=== PATIENT | female | born 1965 | race Hispanic/Latino ===

== ENCOUNTER 2022-12-17 18:38 | Emergency (ER) | payer SELFPAY ==
--- OUTSIDE RECORDS SUMMARY | 2022-12-17 18:43 | XMS REPORT | Continuity of Care Document ---
:[address] [facility] t Address [address] [place] [address] Care Team Providers Name Role Phone PCP, PATIENT DOES NOT HAVE A Primary Care Physician Unavaila ble [email or web address] Attending Clinician Unavailable LOGAN BLACK Attending Clinician Unavailable Logan Black MD Attending Clinician DESEAN LEMA Attending Clinician Unavailable Noris Farris Attending Clinician Unknown, Attending Attending Clinician Unavailable Desean Whitten Attending Clinician Yas Farr Attending Clinician Matteo Ribeiro Attending Clinician [email or web address] Admitting Clinician Unavailable Yas Farr Admitting Clinician Matteo Ribeiro Admitting Clinician Payers Payer Name Policy Type Policy Number Effective Date Expiration Date Sixto vaughn MEDICAID PITER PENDING 2022 2022 PENDING 00:00:00 00:00:00 Problems Condition Condition Condition Status Onset Resolution Last Treating Co mments Source Name Details Category Date Date Treatment Clinician Date Diabetes Diabetes Problem Active [facility] mellitus Mellitus 5-05 Medica l 00:00: 00 Type II Type II Problem Active [facility] diabetes Diabetes 5-05 Medica l mellitus Mellitus 00:00: uncontroll Uncontroll 00 ed ed Hyperlipid Hyperlipid Problem Active P rivia emia emia 5-05 Medical 00:00: 00 Visual Visual Problem Active [facility] disturbanc Disturbanc 5-05 Me dical e e 00:00: 00 Essential Essential Problem Active Shelly via hypertensi Hypertensi 5-05 Me dical on on 00:00: 00 ACUTE ACUTE Diagnosis Active 2016-062017-09-03 Mem oria OSTEOMYELI OSTEOMYELI 08-07 16:39:00 l TIS TIS 00:00: [place] [facility] INFECTION INFECTION Diagnosis Active 2016-062017-06-06 Memoria ON LEFT ON LEFT 08-07 11:08:00 l FOOT FOOT 00:00: [place] Active 06/06/2017 [facility] Lico Toe Toe Disease Active 2016-06 Univers osteomyeli osteomyeli - it y of tis, left tis, left [place] [facility] Toe Toe Disease Active 2016-06 Univers infection infection 1-01 ity of 00:00: [place] [facility] Abscess of Abscess of Disease Active 2016-06 U nivers great toe great toe 0-31 ity of of left of left 00:00: [place] foot foot 00 Medical Branch Diabetic Diabetic Disease Active 2016-06 Unive rs foot ulcer foot ulcer 0-28 it y of 00:00: [place] [facility] Cellulitis Cellulitis Disease Active 2016-06 U nivers of foot, of foot, 0-28 ity of left left 00:00: [place] 00 [facility] Branch Essential Essential Disease Active 2016-06 Uni vers hypertensi hypertensi 0-28 it y of on on 00:00: [place] [facility] Rash and Rash and Disease Active 2016-06 Unive rs other other 0-28 ity of nonspecifi nonspecifi [place] skin c skin 00 Medical eruption eruption Branch Type 2 Type 2 Disease Active 2016-06 Univers diabetes diabetes 0-28 ity of mellitus mellitus 00:00: [place] [facility] DKA DKA Disease Active 2015-06 Univers (diabetic (diabetic 1-23 ity of ketoacidos ketoacidos [place]: [place] es[place] 00 [facility] Hypertensi Problem Active 2017-06-23 Bravo potter ve Hypertensi 02:11:07 l disorder, ve [place] systemic disorder, arterial systemic (disorder) arterial (disorder) Active Problem 06/23/2017 Bravo Pacheco [facility] Osteomyeli Osteomyel Problem Active 2017-06-23 Memoria tis itis 02:11:07 l (disorder) (disorder) He rmann Active Problem 06/23/2017 Bravo Pacheco [facility] OSTEOMYELI OSTEOMYEL Diagnosis Active 2017-09-03 Memoria TIS, ITIS, 16:39:00 l UNSPECIFIE UNSPECIFIE He rmann D D Active [facility] OTHER OTHER Diagnosis Active 2017-06-10 Mem oria ACUTE ACUTE 13:21:00 l OSTEOMYELI OSTEOMYELI He rmann TIS, TIS, UNSPECIFIE UNSPECIFIE D S D S Active [facility] PURE PURE Diagnosis Active 2017-06-18 Mem oria HYPERGLYCE HYPERGLYCE 08:20:00 l RIDEMIA RIDEMIA [place] Active [facility] OTHER OTHER Diagnosis Active 2017-06-18 Mem oria SPECIFIED SPECIFIED 08:20:00 l SOFT SOFT [place] TISSUE TISSUE DISORDERS DISORDERS Active [facility] Other Other Problem 2017-06-23 Memor ia acute acute 02:11:07 l osteomyeli osteomyeli He rmann tis, tis, unspecifie unspecifie d site d site 06/23/2017 [facility] Allergies, Adverse Reactions, Alerts Allergy Allergy Status Severity Reaction(s) Onset Inactive Treating Comm ents Source Name Type Date Date Clinician NO KNOWN Drug Active Univers ALLERGIE Class ity of S [facility] Social History Social Habit Start Date Stop Date Quantity Comments Source Exposure to 2022-10-04 2022-10-14 Not sure [facility] SARS-CoV-2 00:00:00 19:49:00 [facility] (event) Branch Alcohol intake 2022-10-14 2022-10-14 Current University of 00:00:00 00:00:00 non-drinker of [facility] alcohol (finding) Branch Tobacco use and 2017-09-09 2017-09-09 Smokeless tobacco Un iversity of exposure 00:00:00 00:00:00 non-user [place] [facility][birth year] At [birth year] [facility] Branch Smoking Status Start Date Stop Date Source Social History [facility] Medications Ordered Filled Start Stop Current Ordering Indication Dosage Frequency Signature Comments Components Source Medication Medication Date Date Medication? Clinician (SIG) Name Name INSULIN NPH Yes 50U inject 50 U nivers HUM/REG 5-01 Units ity of INSULIN HM 18:29: [place] (NOVOLIN 38 skin 2 Medical 70/30 SC) (two) Branch times daily. SIMVASTATIN 0 Yes 50mg Take 50 mg Univers ORAL 5-01 by mouth ity of 18:29: daily. [place] [address] Medical Branch clopidogrel 2022-0 Yes 75mg Take 1 Univ ers 75 mg 5-01 tablet by ity of tablet 18:29: mouth [place] 38 daily. Medical Branch SERTraline Yes 25mg Take 1 Unive rs 25 mg 5-01 tablet by ity of tablet 18:29: mouth [place] [address] daily. Medical Branch amitriptyli 0 Yes 10mg Take 1 Univ ers ne 10 mg 5-01 tablet by ity of tablet 18:29: mouth at [place] [address] bedtime. Medical Branch diazePAM 2 0 Yes 3mg Take 1.5 Uni vers mg tablet 5-01 tablets by ity of 18:29: mouth at [place] [address] bedtime. Medical Branch simvastatin 0 Yes 20mg Take 1 Univ ers 20 mg 5-01 tablet by ity of tablet 18:29: mouth at [place] [address] bedtime. Medical Branch lisinopril 0 Yes 5mg Take 1 Unive rs 5 mg tablet 5-01 tablet by ity of 18:29: mouth [place] 38 daily. Medical Branch INSULIN NPH Yes 50U inject 50 U nivers HUM/REG 5-01 Units ity of INSULIN HM 18:29: [place] (NOVOLIN 38 skin 2 Medical 70/30 [place]) (two) Branch times daily. SIMVASTATIN 2022-0 Yes 50mg Take 50 mg Univers ORAL 5-01 by mouth ity of 18:29: daily. [place] [address] Medical Branch clopidogrel 2022-0 Yes 75mg Take 1 Univ ers 75 mg 5-01 tablet by ity of tablet 18:29: mouth [place] 38 daily. Medical Branch SERTraline 2023-0 Yes 25mg Take 1 Unive rs 25 mg 5-01 tablet by ity of tablet 18:29: mouth [place] 38 daily. Medical Branch amitriptyli Yes 10mg Take 1 Univ ers ne 10 mg 5-01 tablet by ity of tablet 18:29: mouth at [place] [address] bedtime. Medical Branch diazePAM 2 Yes 3mg Take 1.5 Uni vers mg tablet 5-01 tablets by ity of 18:29: mouth at [place] [address] bedtime. Medical Branch simvastatin Yes 20mg Take 1 Univ ers 20 mg 5-01 tablet by ity of tablet 18:29: mouth at [place] [address] bedtime. Medical Branch lisinopril Yes 5mg Take 1 Unive rs 5 mg tablet 5-01 tablet by ity of 18:29: mouth [place] 38 daily. Medical Branch simvastatin Yes 20 mg = 1 M emoria 20 mg oral 1-05 tab, PO, l tablet 21:15: Bedtime, # Annabel nn 00 30 tab, 5 Refill(s), Pharmacy: [facility] sertraline Yes 25 mg = 1 Me moria 25 mg oral 1-05 tab, PO, l tablet 21:15: Daily, # [place] 00 30 tab, 3 Refill(s), Pharmacy: [facility] melatonin 3 Yes 6 mg, PO, M emoria mg oral 1-05 Bedtime, l tablet 21:15: PRN as [place] 00 needed for insomnia, # 120 tab, 0 Refill(s), Pharmacy: [facility] tramadol Yes 50 mg = 1 Eliel lis hydrochlori 1-05 tab, PO, l de 50 MG 21:15: Q6H, PRN Annabel nn Oral Tablet 00 Pain, X 30 day, # 120 tab, 0 Refill(s) Metronidazo Yes 500 mg = 1 Memoria le 500 MG 1-05 tab, PO, l Oral Tablet 21:15: Q8H, X 7 He rmann [Flagyl] 00 day, # 21 tab, 0 Refill(s), Pharmacy: [facility] sitaGLIPtin Yes 50 mg = 1 M emoria 50 mg oral 1-05 tab, PO, l tablet 21:15: Daily, # [place] 00 30 tab, 5 Refill(s), Pharmacy: [facility] Levofloxaci Yes 750 mg = 1 Memoria n 750 MG 1-05 tab, PO, l Oral Tablet 21:15: Q24H, X 7 H ermann [Levaquin] 00 day, # 7 tab, 0 Refill(s), Pharmacy: [facility] Metformin Yes 500 mg = 1 Me moria hydrochlori 1-05 tab, PO, l de 500 MG 21:15: BID-Meals, He rmann Oral Tablet 00 # 60 tab, 3 Refill(s), Pharmacy: [facility] clopidogrel Yes 75 mg = 1 M emoria 75 mg oral 1-05 tab, PO, l tablet 21:15: Daily, # [place] 00 30 tab, 3 Refill(s), Pharmacy: [facility] K-Dur 20 No Notes: Memoria 06-19 (Same as: l 15:29: K-Dur 20) [place] 00 "Do Not Crush" With food and full glass of water Sodium No 1,000 mL, Memori a Chloride 06-19 1,000 l 0.9% 15:28: ml/hr, [place] (Bolus) IV 00 Infuse Over: 1 hr, Route: IV, 1,000, Drug form: INJ, ONCE, Priority: STAT, Dosing Weight 73.636 kg, Start date: 06/19/17 9:28:00 CAKE STRIPPER, Stop date: 06/19/17 9:28:00 CAKE STRIPPER Insulin No Notes: Memoria Lispro 06-19 Roll in l 05:08: palms of [place] 00 hands gently; Do not shake `vigorousl y. (Same as: Humalog ) "Single Patient Use Only " WASTE: F/P - Black; E - Municipal Trash Bin Stable for 28 days at room temperatur e. Expires in days from ____Date Zoloft No Notes: Memoria 06-19 (Same as: l 03:00: Zoloft) [place] 00 Albuterol No 2.49 mg, Eliel lis 0.83 MG/ML 1-03 Route: l Inhalant 22:17: NEB, [place] Solution 00 Q20Min, Dosing Weight 73.636, kg, PRN Wheezing, Priority: STAT, Start date: 06/18/17 16:17:00 CAKE STRIPPER, Duration: 30 day, Stop date: 07/18/17 16:16:00 CAKE STRIPPER Naloxone 2018-0 No 0.4 mg, Memori a 06-18 Route: l 22:17: IVP, [place] 00 Q2MIN, Dosing Weight 73.636, kg, PRN Narcotic Reversal, Start date: 06/18/17 16:17:00 CAKE STRIPPER, Duration: 8 doses or times, Stop date: Limited # of times Meperidine 2018-0 No 12.5 mg, Mem oria 06-18 Route: l 22:17: IVP, [place] 00 Q30Min, Dosing Weight 73.636, kg, PRN Other -See Comment, For shivering, Start date: 06/18/17 16:17:00 CAKE STRIPPER, Duration: 2 doses or times, Stop date: Limited # of times Diphenhydra 2018-0 No 12.5 mg, Me moria mine 06-18 Route: l 22:17: IVP, Drug form: INJ, Q6H, Dosing Weight 73.636, kg, PRN Itching, Start date: 06/18/17 16:17:00 CAKE STRIPPER, Duration: 30 day, Stop date: 07/18/17 16:16:00 CAKE STRIPPER Ondansetron 2018-0 No 4 mg, Memor ia 06-18 Route: l 22:17: IVP, ONCE, Dosing Weight 73.636, kg, PRN Nausea & Vomiting, Start date: 06/18/17 16:17:00 CAKE STRIPPER Promethazin 2018-0 No 6.25 mg, Me moria e 06-18 Route: l 22:17: IVPB, [place] 00 ONCE, Dosing Weight 73.636, kg, PRN Nausea & Vomiting, Start date: 06/18/17 16:17:00 CAKE STRIPPER Flumazenil 2018-0 No 0.2 mg, Eliel lis 06-18 Route: l 22:17: IVP, PRN, [place] 00 Dosing Weight 73.636, kg, PRN Benzodiaze pine Reversal, Initial dose, Start date: 06/18/17 16:17:00 CAKE STRIPPER, Duration: 30 day, Stop date: 07/18/17 16:16:00 CAKE STRIPPER Hydromorpho 2018-0 No 0.5 mg, Mem oria ne 06-18 Route: l 22:17: IVP, [place] 00 Q5Min, Dosing Weight 73.636, kg, PRN Pain Score 7-10, Start date: 06/18/17 16:17:00 CAKE STRIPPER, Duration: 4 doses or times, Stop date: Limited # of times esmolol 2018-0 No 10 mg, Memoria 06-18 Route: l 22:17: IVP, [place] 00 Q5Min, Dosing Weight 73.636, kg, PRN Other -See Comment, Start date: 06/18/17 16:17:00 CAKE STRIPPER, Duration: 5 doses or times, Stop date: Limited # of times Labetalol 2018-0 No 10 mg, Memori a 06-18 Route: l 22:17: IVP, [place] 00 Q5Min, Dosing Weight 73.636, kg, PRN Elevated BP, Start date: 06/18/17 16:17:00 CAKE STRIPPER, Duration: 5 doses or times, Stop date: Limited # of times Acetaminoph 2018-0 No 1,000 mg, M emoria en 06-18 Route: PO, l 22:17: Drug form: [place] 00 TAB, ONCE, Dosing Weight 73.636, kg, PRN Pain Score 1-3, Start date: 06/18/17 16:17:00 CAKE STRIPPER Oxycodone 2018-0 No 5 mg, Memoria 06-18 Route: PO, l 22:17: Drug form: [place] 00 TAB, Q4H, Dosing Weight 73.636, kg, PRN Pain Score 4-6, Start date: 06/18/17 16:17:00 CAKE STRIPPER, Duration: 30 day, Stop date: 07/18/17 16:16:00 CAKE STRIPPER Hydralazine 2018-0 No 10 mg, Eliel lis 06-18 Route: l 22:17: IVP, [place] 00 Q20Min, Dosing Weight 73.636, kg, PRN Elevated BP, Start date: 06/18/17 16:17:00 CAKE STRIPPER, Duration: 2 doses or times, Stop date: Limited # of times Calcium No 1,000 mL, Memor ia Chloride 06-18 Rate: 125 l 0.0014 22:17: ml/hr, MEQ/ML / 00 Infuse Potassium over: 8 Chloride hr, Route: 0.004 IV, Dosing MEQ/ML / Weight Sodium 73.636 kg, Chloride Total 0.103 Volume: MEQ/ML / 1,000, Sodium Start Lactate date: 0.028 06/18/17 MEQ/ML 16:17:00 Injectable CAKE STRIPPER, Solution Duration: 30 day, Stop date: 07/18/17 16:16:00 CAKE STRIPPER, 1.86, m2 ondansetron No Route: IV, Memoria (ANES) 06-18 Drug form: l 21:24: INJ, ONCE, Stop date: 06/18/17 15:24:00 CAKE STRIPPER propofol No Route: IV, Mem oria (ANES) 06-18 Drug form: l 20:53: INJ, ONCE, Stop date: 06/18/17 14:53:00 CAKE STRIPPER lidocaine No Route: IV, Me moria (ANES) 06-18 Drug form: l 20:53: INJ, ONCE, Stop date: 06/18/17 14:53:00 CAKE STRIPPER fentaNYL No Route: IV, Mem oria (ANES) 06-18 Drug form: l 20:48: INJ, ONCE, Stop date: 06/18/17 14:48:00 CAKE STRIPPER Lactated No Route: IV, Mem oria Ringers 06-18 Total l Injection 20:03: Volume: Annabel nn IV (ANES) 00 1,000, 1000 mL Start date: 06/18/17 14:03:00 CAKE STRIPPER, Stop date: 06/18/17 15:03:00 CAKE STRIPPER Albuterol No 3 mL, Memoria 0.833 MG/ML 06-18 Route: l / 19:48: NEB, [place] Ipratropium 00 Dosing Shepherd Weight 0.167 MG/ML 73.636, Inhalant kg, ONCE, Solution STAT, Start date: 06/18/17 13:48:00 CAKE STRIPPER, Stop date: 06/18/17 13:48:00 CAKE STRIPPER Calcium No 1,000 mL, Memor ia Chloride 06-18 Rate: 25 l 0.0014 19:48: ml/hr, [place] MEQ/ML / 00 Infuse Potassium over: 40 Chloride hr, Route: 0.004 IV, Dosing MEQ/ML / Weight Sodium 73.636 kg, Chloride Total 0.103 Volume: MEQ/ML / 1,000, Sodium Start Lactate date: 0.028 06/18/17 MEQ/ML 13:48:00 Injectable CAKE STRIPPER, Solution Duration: 30 day, Stop date: 07/18/17 13:47:00 CAKE STRIPPER, 1.86, m2 Insulin No Notes: Memoria regular 06-18 (Same as: l 18:24: Humulin R [place] 00 and NovoLIN R) WASTE: F/P - Black; E - Municipal Trash Bin (Do not shake) Lisinopril No Notes: Memor ia 06-18 (Same as: l 15:00: Prinivil, Zestril) Zoloft No Notes: Memoria 06-18 (Same as: l 03:47: Zoloft) [place] 00 Insulin No Notes: Memoria Lispro 06-17 Roll in l 19:20: palms of hands gently; Do not shake `vigorousl y. (Same as: Humalog ) "Single Patient Use Only " WASTE: F/P - Black; E - Municipal Trash Bin Stable for 28 days at room temperatur e. Expires in days from ____Date Dextrose No 12.5 gm, Memor ia 50% Syringe 06-17 25 mL, l 19:20: Route: IVP, Drug Form: INJ, Dosing Weight 73.636, kg, PRN, PRN Blood Glucose Results, Start date: 06/17/17 13:20:00 CAKE STRIPPER, Duration: 30 day, Stop date: 07/17/17 13:19:00 CAKE STRIPPER Glucagon No 1 mg, Memoria 06-17 Route: IM, l 19:20: Drug form: PDR/INJ, PRN, Dosing Weight 73.636, kg, PRN Blood Glucose Results, Start date: 06/17/17 13:20:00 CAKE STRIPPER, Duration: 30 day, Stop date: 07/17/17 13:19:00 CAKE STRIPPER Miralax No Notes: Memoria 1-02 Dissolve l 19:18: in 8 oz of [place] 00 water or juice. (Same as: Miralax) Hydralazine No Notes: Eliel lis 1- (Same as: l 00:18: Apresoline ) Push over 5 minutes Zosyn 2016-06 No Notes: Memoria 2- (Same as: l 20:00: Zosyn) Dosing based on Piperacill in component MEDICATION WASTE Product Size: 3375 mg Product Wasted: ___ mg Plavix 2016-06 No Notes: Memoria 2- (Same As: l 15:00: Plavix) [place] cadexomer 2016-06 No Notes: Memori a iodine - Non-Formul l 0.009 MG/MG 15:00: bernarda Drug. H ermann Topical Gel 00 For [Iodosorb] external use only. (Same As: Iodosorb) Melatonin 3 2016-06 No Notes: Eliel lis MG Extended - (Same as: l Release 03:35: Melatonin) Herm ghazal Tablet 00 heparin 2016-06 No Route: IV, Eliel lis (ANES) - Drug form: l 18:37: INJ, ONCE, [place] 00 Stop date: 06/11/17 12:37:00 CAKE STRIPPER normal 2016-06 No 1,000 mL, Memori a saline 0.9% 08-12 Rate: 100 l IV 1,000 mL 18:35: ml/hr, Herm ghazal Infuse over: 10 hr, Route: IV, Dosing Weight 73.636 kg, Total Volume: 1,000, Start date: 06/11/17 12:35:00 CAKE STRIPPER, Duration: 30 day, Stop date: 07/11/17 12:34:00 CAKE STRIPPER, 1.86, m2 midazolam 2016-06 No Route: IV, Me moria (ANES) - Drug form: l 18:27: SOLN, [place] 00 ONCE, Stop date: 06/11/17 12:27:00 CAKE STRIPPER midazolam 2016-06 No Route: IV, Me moria (ANES) 2- Drug form: l 18:12: SOLN, [place] 00 ONCE, Stop date: 06/11/17 12:12:00 CAKE STRIPPER ondansetron 2016-06 No Route: IV, Memoria (ANES) 08-12 Drug form: l 18:12: INJ, ONCE, [place] Stop date: 06/11/17 12:12:00 CAKE STRIPPER fentaNYL 2016-06 No Route: IV, Mem oria (ANES) 08-12 Drug form: l 18:12: INJ, ONCE, [place] Stop date: 06/11/17 12:12:00 CAKE STRIPPER Lactated 2016-06 No Route: IV, Mem oria Ringers 08-12 Total l Injection 17:24: Volume: Annabel nn IV (ANES) 00 1,000, 1000 mL Start date: 06/11/17 11:24:00 CAKE STRIPPER, Stop date: 06/11/17 12:24:00 CAKE STRIPPER Albuterol 2016-06 No 3 mL, Memoria 0.833 MG/ML 08-12 Route: l / 16:07: NEB, [place] Ipratropium 00 Dosing Shepherd Weight 0.167 MG/ML 73.636, Inhalant kg, ONCE, Solution STAT, Start date: 06/11/17 10:07:00 CAKE STRIPPER, Stop date: 06/11/17 10:07:00 CAKE STRIPPER Calcium 2016-06 No 1,000 mL, Memor ia Chloride 08-12 Rate: 25 l 0.0014 16:07: ml/hr, Lico MEQ/ML / 00 Infuse Potassium over: 40 Chloride hr, Route: 0.004 IV, Dosing MEQ/ML / Weight Sodium 73.636 kg, Chloride Total 0.103 Volume: MEQ/ML / 1,000, Sodium Start Lactate date: 0.028 06/11/17 MEQ/ML 10:07:00 Injectable CAKE STRIPPER, Solution Duration: 30 day, Stop date: 07/11/17 10:06:00 CAKE STRIPPER, 1.86, m2 Docusate 2016-06 No Notes: Memoria 2- (Same as: l 23:00: Colace) [place] (Do Not Crush) heparin 2016-06 No Notes: Memoria 2- porcine l 22:00: heparin [place] 00 Zosyn 2016-06 No Notes: Memoria 2-26 (Same as: l 21:00: Zosyn) Dosing based on Piperacill in component MEDICATION WASTE Product Size: 3375 mg Product Wasted: ___ mg aspirin 81 2016-06 No Notes: Do Me moria mg tablet, 08-11 not crush l enteric 20:59: or chew. Dagoberto n coated 00 (Same As: Ecotrin) Ondansetron 2016-06 No Notes: Eliel lis 08-11 (Same as: l 20:40: Zofran) MEDICATION WASTE Product Size: 4 mg Product Wasted: ___ mg Morphine 2016-06 No Notes: Memoria 08-11 (Same l 20:40: as:MORPhin e Sulfate) Insulin 2016-06 No Notes: Memoria Lispro 08-11 Roll in l 20:36: palms of hands gently; Do not shake `vigorousl y. (Same as: Humalog ) "Single Patient Use Only " WASTE: F/P - Black; E - Municipal Trash Bin Stable for 28 days at room temperatur e. Expires in days from ____Date Glucagon 2016-06 No 1 mg, Memoria 08-11 Route: IM, l 20:36: Drug form: PDR/INJ, PRN, Dosing Weight 73.636, kg, PRN Blood Glucose Results, Start date: 06/10/17 14:36:00 CAKE STRIPPER, Duration: 30 day, Stop date: 07/10/17 14:35:00 CAKE STRIPPER Dextrose 2016-06 No 12.5 gm, Memor ia 50% Syringe 08-11 25 mL, l 20:36: Route: IVP, Drug Form: INJ, Dosing Weight 73.636, kg, PRN, PRN Blood Glucose Results, Start date: 06/10/17 14:36:00 CAKE STRIPPER, Duration: 30 day, Stop date: 07/10/17 14:35:00 CAKE STRIPPER Lisinopril 2016-06 No Notes: Memor ia - (Same as: l 15:00: Prinivil, Zestril) Diazepam 2016-06 No Notes: Memoria 2-24 (Same as: l 15:00: Valium) [place] 00 aspirin 81 2016-06 No Notes: Do Me moria mg tablet, 2-24 not crush l enteric 15:00: or chew. Dagoberto n coated 00 (Same As: Ecotrin) Zosyn 2016-06 No Notes: Memoria 2-23 (Same as: l 21:00: Zosyn) [place] 00 Dosing based on Piperacill in component MEDICATION WASTE Product Size: 3375 mg Product Wasted: ___ mg Unasyn 2016-06 No 3 gm, Memoria 2-23 Route: l 20:46: IVPB, Drug form: PDR/INJ, ABXQ6H, Dosing Weight 73.8, kg, Priority: NOW, Start date: 06/07/17 14:46:00 CAKE STRIPPER, Duration: 3 day, Stop date: 06/10/17 8:46:00 CAKE STRIPPER Miralax 2016-06 No Notes: Memoria 2-23 Dissolve l 15:00: in 8 oz of water or juice. (Same as: Miralax) diazepam 10 2016-06 Yes 10 mg = 1 M emoria mg oral 2-23 tab, PO, l tablet 11:31: Daily, 0 [place] 00 Refill(s) aspirin 81 2016-06 Yes 81 mg = 1 Me moria mg tablet, 2-23 tab, PO, l enteric 11:31: Daily, # Dagoberto n coated 00 90 tab, 3 Refill(s) Aspirin 2016-06 Yes 0 Memoria 2-23 Refill(s) l 11:31: [place] 00 lisinopril 2016-06 Yes 5 mg = 1 Mem oria 5 mg oral 2-23 tab, PO, l tablet 11:31: Daily, 0 [place] 00 Refill(s) cephalexin 2016-06 No 500 mg = 1 M emoria 500 mg oral 2-23 cap, PO, l capsule 11:31: QID, 0 [place] 00 Refill(s) Vancomycin 2016-06 No 2001 mg: Me moria 2-23 infuse l 06:00: over 2.5 [place] 00 hours Lactulose 2016-06 No Notes: Memori a 667 MG/ML 2-23 (Same l Oral 00:59: as:Chronul [place] Solution 00 ac) Insulin 2016-06 No Notes: Memoria Lispro 2-23 Roll in l 00:53: palms of hands gently; Do not shake `vigorousl y. (Same as: Humalog ) "Single Patient Use Only " WASTE: F/P - Black; E - Municipal Trash Bin Stable for 28 days at room temperatur e. Expires in days from ____Date Glucagon 2016-06 No 1 mg, Memoria 2-23 Route: IM, l 00:53: Drug form: [place] 00 PDR/INJ, PRN, Dosing Weight 73.8, kg, PRN Blood Glucose Results, Start date: 06/06/17 18:53:00 CAKE STRIPPER, Duration: 30 day, Stop date: 07/06/17 18:52:00 CAKE STRIPPER Dextrose 2016-06 No 25 gm, 50 Eliel lis 50% Syringe 2-23 mL, Route: l 00:53: IVP, Drug Form: INJ, Dosing Weight 73.8, kg, PRN, PRN Blood Glucose Results, Start date: 06/06/17 18:53:00 CAKE STRIPPER, Duration: 30 day, Stop date: 07/06/17 18:52:00 CAKE STRIPPER Acetaminoph 2016-06 No Notes: Do M emoria en 2-22 not exceed l 20:45: 4 gm/day. (Same as: Tylenol) Acetaminoph 2016-06 No Notes: Eliel lis en 325 MG / 2-22 (Same as: l Hydrocodone 20:45: [place] Annabel nn Bitartrate 00 325/5) Do 5 MG Oral not exceed Tablet 4gm/day of acetaminop hen. Simethicone 2016-06 No Notes: Eliel lis 2-22 (Same as: l 20:45: Mylicon) [place] 00 Tums 2016-06 No Notes: Memoria 2-22 (Same As: l 20:45: Tums) Calcium Carbonate 500 mg = 200 mg elemental calcium Dose = mg calcium carbonate ( mg elemental calcium) heparin 2016-06 No Notes: Memoria 2-22 porcine l 20:45: heparin [place] 00 Hydralazine 2016-06 No Notes: Eliel lis 2-22 (Same as: l 20:45: Apresoline [place] 00 ) Push over 5 minutes Morphine 2016-06 No Notes: Memoria 2-22 Preservati l 20:45: ve free. Lico (Same as: Morphine Sulfate-PF ) Ondansetron 2016-06 No Notes: Eliel lis 2-22 (Same as: l 20:45: Zofran) [place] 00 MEDICATION WASTE Product Size: 4 mg Product Wasted: ___ mg Docusate 2016-06 No Notes: Memoria 2-22 (Same as: l 20:45: Colace) [place] (Do Not Crush) Benadryl 2016-06 No Notes: Memoria 2-22 (Same as: l 20:45: Benadryl) [place] Saline 2016-06 No Notes: Memoria Flush 0.9% 2-22 (Same as: l 20:44: BD [place] 00 Posiflush) Sodium 2016-06 No 1,000 mL, Memori a Chloride 2-22 Rate: 75 l 0.9% IV 20:44: ml/hr, Lico 1,000 mL 00 Infuse over: 13.3 hr, Route: IV, Dosing Weight 73.8 kg, Total Volume: 1,000, Start date: 06/06/17 14:44:00 CAKE STRIPPER, Duration: 30 day, Stop date: 07/06/17 14:43:00 CAKE STRIPPER, 1.86, m2 normal 2016-06 No 1,000 mL, Memori a saline 0.9% 2-22 Rate: 120 l IV 1,000 mL 20:38: ml/hr, Herm ghazal Infuse over: 8.3 hr, Route: IV, Dosing Weight 73.8 kg, Total Volume: 1,000, Start date: 06/06/17 14:38:00 CAKE STRIPPER, Duration: 30 day, Stop date: 07/06/17 14:37:00 CAKE STRIPPER, 1.86, m2 cefepime 2016-06 No Notes: Memoria 2-22 (Same as: l 19:45: Maxipime) [place] 00 MEDICATION WASTE Product Size: 2000 mg Product Wasted: ___ mg Vancomycin 2016-06 No 2000 mg: Me moria 2-22 infuse l 17:50: over 2.5 [place] 00 hours Saline 2017- No Notes: Memoria Flush 0.9% 2-22 (Same as: l 16:41: BD [place] 00 Posiflush) famotidine 2017-0 Yes 20mg Take 1 [facility] (PEPCID) 20 8-02 tablet by ity of mg tablet 00:00: mouth [place] 00 daily. Medical Branch famotidine 2017-0 Yes 20mg Take 1 [facility] (PEPCID) 20 8-02 tablet by ity of mg tablet 00:00: mouth [place] 00 daily. [facility] metoclopram 2017-0 Yes 10mg Take 1 Univ ers gela HCl 10 8-01 tablet by ity of mg tablet 00:00: mouth [place] 00 every 6 Medical (six) Branch hours. ondansetron 2017-0 Yes 4mg Take 1 Univ ers (ZOFRAN 8-01 tablet by ity of ODT) 4 mg 00:00: mouth [place] disintegrat 00 every 8 Medic al ing tablet (eight) Branch hours as needed for Nausea and Vomiting (N/V). metoclopram 2017-0 Yes 10mg Take 1 Univ ers gela HCl 10 8-01 tablet by ity of mg tablet 00:00: mouth [place] 00 every 6 Medical (six) Branch hours. ondansetron 2017-0 Yes 4mg Take 1 Univ ers (ZOFRAN 8-01 tablet by ity of ODT) 4 mg 00:00: mouth [place] disintegrat 00 every 8 Medic al ing tablet (eight) Branch hours as needed for Nausea and Vomiting (N/V). atorvastati atorvastati No 1 Q1D atorvastat [facility] n 20 mg n 20 mg in 20 mg Medic al tablet Take tablet Take tablet 1 tablet 1 tablet Take 1 every day every day tablet by oral by oral every day route in route in by oral the the route in evening. evening. the evening. escitalopra escitalopra No 1 Q1D escitalopr [facility] m 10 mg m 10 mg am 10 mg Medic al tablet Take tablet Take tablet 1 tablet 1 tablet Take 1 every day every day tablet by oral by oral every day route. route. by oral route. lisinopril lisinopril No 1 Q1D lisinopril [facility] 10 mg 10 mg 10 mg Medical tablet Take tablet Take tablet 1 tablet 1 tablet Take 1 every day every day tablet by oral by oral every day route. route. by oral route. Novolin N Novolin N No 30unit( BID Novolin N [facility] NPH U-100 NPH U-100 s) NPH U-100 Medical Insulin Insulin Insulin isophane isophane isophane 100 unit/mL 100 unit/mL 100 subcutaneou subcutaneou unit/mL s susp s susp subcutaneo Inject 30 Inject 30 us susp units twice units twice Inject 30 a day by a day by units subcutaneou subcutaneou twice a s route. s route. day by subcutaneo us route. Vital Signs Vital Name Observation Time Observation Value Comments Source BP Diastolic 2022-10-18 76 mm[Hg] [facility] 00:00:00 Height 2022-10-18 64 [in_i] [facility] 00:00:00 BMI (Body Mass 2022-10-18 28.8 kg/m2 [facility] l Index) 00:00:00 BP Systolic 2022-10-18 125 mm[Hg] [facility] 00:00:00 Body Weight 2022-10-18 2688 [oz_av] [facility] 00:00:00 Systolic blood 2022-10-15 171 mm[Hg] [facility] pressure 04:00:00 [facility] Diastolic blood 2022-10-15 82 mm[Hg] [place] o f pressure 04:00:00 [facility] Heart rate 2022-10-15 95 /min [facility] 04:00:00 [facility] Respiratory rate 2022-10-15 17 /min [facility] 04:00:00 [facility] Oxygen saturation 2022-10-15 93 /min [facility] Arterial blood 04:00:00 [facility] by Pulse oximetry [place] Body temperature 2022-10-15 37.5 Nidia [facility] 00:50:00 [facility] Body height 2022-10-15 162.6 cm [facility] 00:50:00 [facility] Body weight 2022-10-15 71.215 kg [facility] 00:50:00 [facility] BMI 2022-10-15 26.95 kg/m2 [facility] 00:50:00 [facility] Systolic blood 2022-10-14 157 mm[Hg] [facility] 23:35:00 [facility] Diastolic blood 2022-10-14 95 mm[Hg] [facility] o f pressure 23:35:00 [facility] Heart rate 2022-10-14 90 /min University 23:35:00 [facility] Body temperature 2022-10-14 37.44 Nidia [facility] 23:35:00 [facility] Respiratory rate 2022-10-14 18 /min University 23:35:00 [facility] Oxygen saturation 2022-10-14 94 /min 94-96 fluctuating Unive rsity of in Arterial blood 23:35:00 [facility] by Pulse oximetry Branch Temperature Oral 2017-06-20 98.3 F [facility] (F[facility] 22:55:00 Heart Rate 2017-06-20 [facility] 22:55:00 Systolic (mm Hg) 2017-06-20 [facility] 22:55:00 Diastolic (mm Hg) 2017-06-20 [facility] 22:55:00 Systolic (mm Hg) 2017-06-20 [facility] 18:24:00 Diastolic (mm Hg) 2017-06-20 [facility] 18:24:00 Temperature Oral 2017-06-20 98.3 F [facility] (F) 18:24:00 Heart Rate 2017-06-20 [facility] 18:24:00 Systolic (mm Hg) 2017-06-20 [facility] 14:18:00 Diastolic (mm Hg) 2017-06-20 [facility] 14:18:00 Temperature Oral 2017-06-20 98.8 F [facility] (F) 14:18:00 Heart Rate 2017-06-20 [facility] 14:18:00 Respitory Rate 2017-06-20 [facility] 06:00:00 Weight 2017-06-20 [facility] 03:30:00 Respitory Rate 2017-06-20 [facility] 02:30:00 Respitory Rate 2017-06-19 [facility] 21:47:00 Height 2017-06-10 165.1 cm [facility] 19:35:00 BMI Calculated 2017-06-10 [facility] 19:35:00 Weight 2017-06-10 [facility] 19:35:00 Systolic (mm Hg) 2017-06-10 [facility] 17:19:00 Diastolic (mm Hg) 2017-06-10 [facility] 17:19:00 Respitory Rate 2017-06-10 [facility] 17:19:00 Heart Rate 2017-06-10 [facility] 17:19:00 Temperature Oral 2017-06-10 98.3 F Porfir[facility] Magana [facility]mann (F) 17:19:00 Respitory Rate 2017-06-10 [facility] 13:18:00 Systolic (mm Hg) 2017-06-10 [facility] 13:18:00 Diastolic (mm Hg) 2017-06-10 [facility] 13:18:00 Temperature Oral 2017-06-10 98 F Porfirio Magana rmann (F) 13:18:00 Heart Rate 2017-06-10 [facility] 13:18:00 Respitory Rate 2017-06-10 [facility] 09:24:00 Heart Rate 2017-06-10 [facility] 09:24:00 Temperature Oral 2017-06-10 97.4 F Porfirio Magana [facility]mann (F) 09:24:00 Systolic (mm Hg) 2017-06-10 [facility] 09:24:00 Diastolic (mm Hg) 2017-06-10 [facility] 09:24:00 Weight 2017-06-06 Porfirio Stisnonan n 16:36:00 BMI Calculated 2017-06-06 [facility] 16:36:00 Height 2017-06-06 165.1 cm Porfirio Stinsonan n 16:36:00 Procedures Procedure Date / Time Performed Performing Clinician Rita e COMP. METABOLIC PANEL 2022-10-15 01:54:00 [facility] ([id number] Medical Branch CBC WITH DIFF 2022-10-15 01:54:00 Logan Black [facility] URINALYSIS 2022-10-15 01:54:00 Logan Black [facility] NOTICE OF PRIVACY 2022-10-15 00:47:03 Doctor Unassigned, No Univ [facility] PRACTICES Name Medical Branch CONSENT/REFUSAL FOR 2022-10-15 00:45:28 [facility] Branch TREATMENT Encounters Start End Encounter Admission Attending Care Care Encounter Source Date/Time Date/Time Type Type Clinicians Facility Department ID 2022-10-18 2022-10-18 Outpatient GC_CPC_Walk PRIV PRIV [id number] [facility] 00:00:00 00:00:00 Crystal [id number] [facility] 2022-10-18 2022-10-18 Bayron [facility] 05 [facility] 00:00:00 00:00:00 Amol Gates [facility] ica ROUTE DELIVERY SERVICE DRIVER: [id number] GC_CPC_Need [place] [id number], [place] [address] , Ph. 2022-10-14 2022-10-14 Emergency X WAYNE, [facility] ERT [id number] Univers 19:53:00 23:05:00 LOGAN phillips [facility] 2022-10-14 2022-10-14 Emergency [place], [facility] [id number] Univers 19:53:00 23:05:00 Logan WILSON [id number] [facility] [id number] [facility] [id number] [place] [address] Branch 2022-10-14 2022-10-14 Outpatient Maribel LEMA [facility] [id number] Univers 18:15:00 19:30:13 [facility] 2022-10-14 2022-10-14 Nurse Noris Emmanuel [facility] [id number] Univers 18:15:00 18:35:00 Visit Unknown, Attending [facility] [id number] it Desean Lewis [id number] [facility] [id number] [place] adriana [address] MEDICAL OFFICE BUILDING 2017-06-10 2017-06-20 [facility] [id number] [facility] 19:21:00 23:15:00 r Lico 60 l [facility] 2017-06-10 2017-06-20 [place] [id number] 13:21:00 17:15:00 Yas Bell 2017-06-06 2017-06-10 Inpatient [facility] [id number] [facility] 16:23:00 18:30:00 maribel Barfield 00 l [facility] 2017-06-06 2017-06-10 Outpatient NADIYA Ribeiro ZIA [id number] 10:23:00 12:30:00 Results Test Description Test Time Test Comments Results Result Comments Source HEMATOLOGY 2017-06-19 20:46:00 Test Item Value Reference Range Interpretation Comme nts Basophils (test code = 0.5 See_Comment [Aut omated message] The system Basophils) which generated this result transmitted ref erence range: <=1.0. The reference r beth was not used to interpret this result as normal/abnormal . [place] [facility]RasarooTWGWIJHPUQ3458-09-98 20:46:00 Test Item Value Reference Range Interpretation Comments Segs-Bands # (test code = Segs-Bands #) 6.5 1.5-8.1 [facility] ArlingtonQibnfhoRFFUXTDQNS8307-56-65 20:46:00 Test Item Value Reference Range Interpretation Comments Monocytes # (test code 0.4 See_Comment [Aut omated message] The = Monocytes #) system which generated this result tra nsmitted reference range : <=0.8. The reference r beth was not used to int erpret this result as normal/abnormal . [place] [facility] ArlingtonPinotkkBAJNLLVVFY5800-46-82 20:46:00 Test Item Value Reference Range Interpretation Comments Lymphocytes # (test code = Lymphocytes 1.1 1.0-5.5 #) [facility] ArlingtonZlhcfuzMMRESYUERG4339-33-44 20:46:00 Test Item Value Reference Range Interpretation Comments Lymphocytes (test code = Lymphocytes) 14.0 20.0-40.0 [facility] ArlingtonUowocvyHXCGZSYMUW6246-99-04 20:46:00 Test Item Value Reference Range Interpretation Comments Segs (test code = Segs) 80.6 45.0-75.0 [facility] ArlingtonKtqqmmzWEUNVTRNFQ0261-58-83 20:46:00 Test Item Value Reference Range Interpretation Comments Eosinophils (test code = 0.5 See_Comment [A utomated message] The Eosinophils) system which ge nerated this result tra nsmitted reference range : <=4.0. The reference r beth was not used to int erpret this result as normal/abnormal . [facility] ArlingtonWmpvufnCLUUCFUYWN5866-11-57 20:46:00 Test Item Value Reference Range Interpretation Comments Monocytes (test code = Monocytes) 4.4 2.0-12.0 [facility] ArlingtonFkrdsxzPFQDOILUGT0697-28-41 20:46:00 Test Item Value Reference Range Interpretation Comments Hgb (test code = Hgb) 9.3 12.0-16.0 [facility] ArlingtonNblczvqVBGIGVWJHL2477-26-39 20:46:00 Test Item Value Reference Range Interpretation Comments Hct (test code = Hct) 27.7 36.0-48.0 [place] [facility] ArlingtonRsylsczGLWYFEPLDX3840-69-65 20:46:00 Test Item Value Reference Range Interpretation Comments WBC (test code = WBC) 8.1 3.7-10.4 [facility] ArlingtonGnsgeeuKFLFSKAXVF9624-22-89 20:46:00 Test Item Value Reference Range Interpretation Comments RBC (test code = RBC) 3.31 4.20-5.40 [facility] ArlingtonJquspjlIHSFOTXNTZ3138-52-33 20:46:00 Test Item Value Reference Range Interpretation Comments Platelet (test code = Platelet) 342 133-450 [facility] ArlingtonUeroezlOOWWYHJGLZ4370-61-51 20:46:00 Test Item Value Reference Range Interpretation Comments MPV (test code = MPV) 8.7 7.4-10.4 [facility] ArlingtonPpdeepyQVSKIODNCT5417-54-96 20:46:00 Test Item Value Reference Range Interpretation Comments RDW (test code = RDW) 13.6 11.5-14.5 [facility] ArlingtonNtlvktnQIXWETKITJ0930-86-66 20:46:00 Test Item Value Reference Range Interpretation Comments MCV (test code = MCV) 83.5 80.0-98.0 [facility] ArlingtonYugfiwnFPYLTUHWSP0566-63-39 20:46:00 Test Item Value Reference Range Interpretation Comments MCH (test code = MCH) 28.0 pg 27.0-31.0 [facility] ArlingtonRbnemsiNBQIHXXQDY6168-63-53 20:46:00 Test Item Value Reference Range Interpretation Comments MCHC (test code = MCHC) 33.6 32.0-36.0 [facility]rwUQLIXAOMNIQF6327-73-24 11:28:00 Test Item Value Reference Range Interpretation Comments AGAP (test code = AGAP) 12.3 10.0-20.0 [facility] MichiganIygndmjYBPILNLGBPNT8521-13-70 11:28:00 Test Item Value Reference Range Interpretation Comments eGFR (test code = eGFR) 95 [facility]YqjifvzNRKDCKZLMIKA2777-84-29 11:28:00 Test Item Value Reference Range Interpretation Comments Sodium Lvl (test code = Sodium Lvl) 140 135-145 [facility] MichiganGtokgaiMSNNXMDFOVKL4085-40-33 11:28:00 Test Item Value Reference Range Interpretation Comments Potassium Lvl (test code = Potassium 3.3 3.5-5.1 Lvl) [facility] MichiganHylajfnXXPKQMPWXHSA5174-52-30 11:28:00 Test Item Value Reference Range Interpretation Comments Creatinine Lvl (test code = Creatinine 0.73 0.50-1.40 Lvl) [facility]EojtuszVJEFOFICGDDU1737-19-91 11:28:00 Test Item Value Reference Range Interpretation Comments Chloride Lvl (test code = Chloride Lvl) 103 95-109 [facility] MichiganVumakiuNCKCENEDSCAT0099-98-20 11:28:00 Test Item Value Reference Range Interpretation Comments CO2 (test code = CO2) 28 24-32 [facility]NfhpipiVZSMBKBIIHTS6045-18-23 11:28:00 Test Item Value Reference Range Interpretation Comments Calcium Lvl (test code = Calcium Lvl) 8.7 8.5-10.5 [facility] MichiganNkdbdukATCSZMZAHAIN5131-83-04 11:28:00 Test Item Value Reference Range Interpretation Comments BUN (test code = BUN) 9 7-22 [facility] MichiganFxwzuijOZZNOEPJISLP0812-32-58 11:28:00 Test Item Value Reference Range Interpretation Comments Glucose Lvl (test code = Glucose Lvl) 156 70-99 [place] [address]2018-01-03 11:28:00 Test Item Value Reference Range Interpretation Comments S Preg (test code = S Negative *NA*(06/18/17 Preg) 5:28 AM) [facility] ArlingtonBiomtpnXEAWZGZQDM8744-54-43 11:28:00 Test Item Value Reference Range Interpretation Comments Platelet (test code = Platelet) 353 133-450 [facility] ArlingtonCrhplwrBZJPKCAMYH2138-42-63 11:28:00 Test Item Value Reference Range Interpretation Comments MPV (test code = MPV) 8.7 7.4-10.4 [facility] ArlingtonVnutznvXEJFHEXELD2639-06-62 11:28:00 Test Item Value Reference Range Interpretation Comments MCH (test code = MCH) 27.9 pg 27.0-31.0 [facility] ArlingtonFmvrctzCXLZSOBYZR9333-35-29 11:28:00 Test Item Value Reference Range Interpretation Comments MCV (test code = MCV) 83.2 80.0-98.0 [facility] ArlingtonLtzsqdvRDYPOJQWZA7166-59-03 11:28:00 Test Item Value Reference Range Interpretation Comments Hct (test code = Hct) 34.6 36.0-48.0 [facility] ArlingtonPjxmhgxWOLOBDFTSC8655-35-21 11:28:00 Test Item Value Reference Range Interpretation Comments RDW (test code = RDW) 13.2 11.5-14.5 [facility] ArlingtonXxaknukFVTWVUHAUI5107-65-57 11:28:00 Test Item Value Reference Range Interpretation Comments MCHC (test code = MCHC) 33.5 32.0-36.0 [facility] ArlingtonLqnpeqxGWNDMMBPDB9959-94-18 11:28:00 Test Item Value Reference Range Interpretation Comments RBC (test code = RBC) 4.15 4.20-5.40 [facility] ArlingtonPmupkxuKNTJYMVAJD7429-11-46 11:28:00 Test Item Value Reference Range Interpretation Comments WBC (test code = WBC) 5.9 3.7-10.4 [facility] ArlingtonIdpxsaeSDACRDDXOS2228-47-90 11:28:00 Test Item Value Reference Range Interpretation Comments Hgb (test code = Hgb) 11.6 12.0-16.0 [facility] ArlingtonSannjdcMNUQEIOGQC9966-37-91 11:28:00 Test Item Value Reference Range Interpretation Comments Basophils # (test code 0.1 See_Comment [Aut omated message] The = Basophils #) system which generated this result tra nsmitted reference range : <=0.2. The reference r beth was not used to int erpret this result as normal/abnormal . [facility] ArlingtonKhpgghsPENZOFDOON7385-75-89 11:28:00 Test Item Value Reference Range Interpretation Comments Eosinophils # (test code 0.3 See_Comment [A utomated message] The = Eosinophils #) system whic h generated this result tra nsmitted reference range : <=0.5. The reference r beth was not used to int erpret this result as normal/abnormal . [facility] ArlingtonPvffufyZRYJGGXGPD9998-64-74 11:28:00 Test Item Value Reference Range Interpretation Comments Lymphocytes # (test code = Lymphocytes 1.9 1.0-5.5 #) [facility] ArlingtonHyhvklmHBOFZBJBJS8289-40-90 11:28:00 Test Item Value Reference Range Interpretation Comments Monocytes # (test code 0.4 See_Comment [Aut omated message] The = Monocytes #) system which generated this result tra nsmitted reference range : <=0.8. The reference r beth was not used to int erpret this result as normal/abnormal . [facility]QznarzsHJHXVOWWJM9304-28-31 11:28:00 Test Item Value Reference Range Interpretation Comments Eosinophils (test code = 4.3 See_Comment [A utomated message] The Eosinophils) system which ge nerated this result tra nsmitted reference range : <=4.0. The reference r beth was not used to int erpret this result as normal/abnormal . [facility] CenterKtrxafkVQEZWAQGLX0539-37-95 11:28:00 Test Item Value Reference Range Interpretation Comments Basophils (test code = 1.1 See_Comment [Aut omated message] The Basophils) system which ge nerated this result tra nsmitted reference range : <=1.0. The reference r beth was not used to int erpret this result as normal/abnormal . [facility] CenterVlsucmvMZZHLEHOHR9311-69-37 11:28:00 Test Item Value Reference Range Interpretation Comments Segs-Bands # (test code = Segs-Bands #) 3.3 1.5-8.1 [facility] CenterEogyrbuFQKQASXXWW7139-56-44 11:28:00 Test Item Value Reference Range Interpretation Comments Segs (test code = Segs) 55.5 45.0-75.0 [facility] [place] [facility] ResourcesEqgyszmKGNAIYEHNA3616-22-81 11:28:00 Test Item Value Reference Range Interpretation Comments Lymphocytes (test code = Lymphocytes) 32.0 20.0-40.0 [facility] [place] [facility] ResourcesXcfkrzaDWMPOWMAJF0428-84-45 11:28:00 Test Item Value Reference Range Interpretation Comments Monocytes (test code = Monocytes) 7.1 2.0-12.0 [facility] Sxbbm XQCAYZG7659-64-71 23:40:00 Test Item Value Reference Range Interpretation Comments Antibody Scrn (test Negative (06/10/17 code = Antibody Scrn) 5:40 PM) [facility] Sxbbm JERCYQI7431-89-66 23:40:00 Test Item Value Reference Range Interpretation Comments ABO/Rh (test code = ABO/Rh) B POS [facility] [employer] SOUID3280-97-75 23:40:00 Test Item Value Reference Range Interpretation Comments eGFR (test code = eGFR) 101 [facility] [employer] IDDGM2677-08-11 23:40:00 Test Item Value Reference Range Interpretation Comments Chloride Lvl (test code = Chloride Lvl) 101 95-109 [facility]2017-12-26 23:40:00 Test Item Value Reference Range Interpretation Comments Creatinine Lvl (test code = Creatinine 0.67 0.50-1.40 Lvl) [facility]2017-12-26 23:40:00 Test Item Value Reference Range Interpretation Comments Potassium Lvl (test code = Potassium 3.7 3.5-5.1 Lvl) [facility]2017-12-26 23:40:00 Test Item Value Reference Range Interpretation Comments AGAP (test code = AGAP) 11.7 10.0-20.0 [facility]2017-12-26 23:40:00 Test Item Value Reference Range Interpretation Comments CO2 (test code = CO2) 29 24-32 [facility]2017-12-26 23:40:00 Test Item Value Reference Range Interpretation Comments Calcium Lvl (test code = Calcium Lvl) 8.8 8.5-10.5 [facility]2017-12-26 23:40:00 Test Item Value Reference Range Interpretation Comments BUN (test code = BUN) 8 7-22 [facility]2017-12-26 23:40:00 Test Item Value Reference Range Interpretation Comments Sodium Lvl (test code = Sodium Lvl) 138 135-145 [facility]2017-12-26 23:40:00 Test Item Value Reference Range Interpretation Comments Glucose Lvl (test code = Glucose Lvl) 172 70-99 [place] [address]2017-12-26 23:40:00 Test Item Value Reference Range Interpretation Comments S Preg (test code = S Negative *NA*(06/10/17 Preg) 5:40 PM) [facility] ArlingtonOqontqbDBUCFGZMQA0129-55-72 23:40:00 Test Item Value Reference Range Interpretation Comments PT (test code = PT) 12.9 s 12.0-14.7 [facility] ArlingtonFduiyyvJVSCXGLBRX6949-47-14 23:40:00 Test Item Value Reference Range Interpretation Comments INR (test code = INR) 0.97 0.85-1.17 [facility] ArlingtonOpfuaayZVPITWMQPM0572-37-09 23:40:00 Test Item Value Reference Range Interpretation Comments INR (test code = INR) 0.97 0.85-1.17 [place] 402177-12-26 23:40:00 Test Item Value Reference Range Interpretation Comments PTT (test code = PTT) 32.6 s 22.9-35.8 [facility] ArlingtonWqotlygAVBLTFYJCF0794-75-45 23:40:00 Test Item Value Reference Range Interpretation Comments PT (test code = PT) 12.9 s 12.0-14.7 [facility] ArlingtonVsfnlltUOZZSAYRAO2629-66-36 23:40:00 Test Item Value Reference Range Interpretation Comments Segs-Bands # (test code = Segs-Bands #) 7.9 1.5-8.1 [facility] ArlingtonGkrtmhoQOJOYFXXWM9176-73-29 23:40:00 Test Item Value Reference Range Interpretation Comments Basophils (test code = 0.9 See_Comment [Aut omated message] The Basophils) system which ge nerated this result tra nsmitted reference range : <=1.0. The reference r beth was not used to int erpret this result as normal/abnormal . [facility] ArlingtonHxpmctbTRAVTXPJZO0797-41-39 23:40:00 Test Item Value Reference Range Interpretation Comments Lymphocytes # (test code = Lymphocytes 1.6 1.0-5.5 #) [facility] ArlingtonCihkadaEUWXDAVMOC6678-28-57 23:40:00 Test Item Value Reference Range Interpretation Comments Monocytes # (test code 0.5 See_Comment [Aut omated message] The = Monocytes #) system which generated this result tra nsmitted reference range : <=0.8. The reference r beth was not used to int erpret this result as normal/abnormal . [facility] ArlingtonMavltwuDSXWIQXONV5885-38-23 23:40:00 Test Item Value Reference Range Interpretation Comments Eosinophils # (test code 0.2 See_Comment [A utomated message] The = Eosinophils #) system whic h generated this result tra nsmitted reference range : <=0.5. The reference r beth was not used to int erpret this result as normal/abnormal . [facility] ArlingtonGvnomvoZKGSFQIGSZ0293-59-69 23:40:00 Test Item Value Reference Range Interpretation Comments Basophils # (test code 0.1 See_Comment [Aut omated message] The = Basophils #) system which generated this result tra nsmitted reference range : <=0.2. The reference r beth was not used to int erpret this result as normal/abnormal . [place] [id number] 23:40:00 Test Item Value Reference Range Interpretation Comments Lymphocytes (test code = Lymphocytes) 15.8 20.0-40.0 [facility] [place]dgNFQJ[place]JYRMY5837-63-50 23:40:00 Test Item Value Reference Range Interpretation Comments Segs (test code = Segs) 76.0 45.0-75.0 [facility] ArlingtonYxbpretLVMKDCEALU9057-06-43 23:40:00 Test Item Value Reference Range Interpretation Comments Eosinophils (test code = 2.1 See_Comment [A utomated message] The Eosinophils) system which ge nerated this result tra nsmitted reference range : <=4.0. The reference r beth was not used to int erpret this result as normal/abnormal . [facility] ArlingtonEwxroxmECNEVKMRML0171-26-88 23:40:00 Test Item Value Reference Range Interpretation Comments Monocytes (test code = Monocytes) 5.2 2.0-12.0 [facility] ArlingtonJolauykLENPONOWDF9684-73-58 23:40:00 Test Item Value Reference Range Interpretation Comments MCV (test code = MCV) 84.2 80.0-98.0 [facility] ArlingtonPcpptrgHJNOJHXVIV7844-99-27 23:40:00 Test Item Value Reference Range Interpretation Comments MCH (test code = MCH) 28.6 pg 27.0-31.0 [facility] ArlingtonAvrepeePLVCYZHWAF2521-42-99 23:40:00 Test Item Value Reference Range Interpretation Comments RDW (test code = RDW) 13.1 11.5-14.5 [facility] ArlingtonJjridzeIFWNYQHZVA1451-94-74 23:40:00 Test Item Value Reference Range Interpretation Comments MCHC (test code = MCHC) 33.9 32.0-36.0 [facility] ArlingtonJwgelexJOVRFGANCI5412-18-97 23:40:00 Test Item Value Reference Range Interpretation Comments Platelet (test code = Platelet) 351 133-450 [facility] ArlingtonEudpmdxYDRWKIDQLY8948-95-45 23:40:00 Test Item Value Reference Range Interpretation Comments MPV (test code = MPV) 8.4 7.4-10.4 [facility] ArlingtonKoomowdLWLYFLKHMH0914-95-48 23:40:00 Test Item Value Reference Range Interpretation Comments RBC (test code = RBC) 3.97 4.20-5.40 [facility] ArlingtonAxqyqwmRIFONXHUSB8055-73-99 23:40:00 Test Item Value Reference Range Interpretation Comments Hct (test code = Hct) 33.4 36.0-48.0 [facility] ArlingtonCfrgvewSLWYEQDDIU6647-52-14 23:40:00 Test Item Value Reference Range Interpretation Comments WBC (test code = WBC) 10.4 3.7-10.4 [place] 402177-12-26 23:40:00 Test Item Value Reference Range Interpretation Comments Hgb (test code = Hgb) 11.3 12.0-16.0 [facility]2017-12-26 20:55:00 Test Item Value Reference Range Interpretation Comments eGFR (test code = eGFR) 105 [facility]2017-12-26 20:55:00 Test Item Value Reference Range Interpretation Comments Albumin Lvl (test code = Albumin Lvl) 2.5 3.5-5.0 [facility]2017-12-26 20:55:00 Test Item Value Reference Range Interpretation Comments ALT (test code = ALT) 29 See_Comment [Auto mated message] The system which ge nerated this result transmit megan reference range : <=65. The reference range was not used to interpr et this result as eunice l/abnormal. [facility]2017-12-26 20:55:00 Test Item Value Reference Range Interpretation Comments AST (test code = AST) 25 See_Comment [Auto mated message] The system which ge nerated this result transmit megan reference range : <=37. The reference range was not used to interpr et this result as eunice l/abnormal. [facility]2017-12-26 20:55:00 Test Item Value Reference Range Interpretation Comments Alk Phos (test code = Alk Phos) 127 39-136 [facility]2017-12-26 20:55:00 Test Item Value Reference Range Interpretation Comments Bili Total (test code = Bili Total) 0.4 0.2-1.3 [facility]2017-12-26 20:55:00 Test Item Value Reference Range Interpretation Comments Calcium Lvl (test code = Calcium Lvl) 8.8 8.5-10.5 [facility]2017-12-26 20:55:00 Test Item Value Reference Range Interpretation Comments Total Protein (test code = Total 7.5 6.4-8.4 Protein) [place] 738037-12-26 20:55:00 Test Item Value Reference Range Interpretation Comments Sodium Lvl (test code = Sodium Lvl) 138 135-145 [facility]2017-12-26 20:55:00 Test Item Value Reference Range Interpretation Comments Creatinine Lvl (test code = Creatinine 0.61 0.50-1.40 Lvl) [facility]2017-12-26 20:55:00 Test Item Value Reference Range Interpretation Comments Chloride Lvl (test code = Chloride Lvl) 101 95-109 [facility]2017-12-26 20:55:00 Test Item Value Reference Range Interpretation Comments CO2 (test code = CO2) - [facility]2017-12-26 20:55:00 Test Item Value Reference Range Interpretation Comments Potassium Lvl (test code = Potassium 3.8 3.5-5.1 Lvl) [facility]2017-12-26 20:55:00 Test Item Value Reference Range Interpretation Comments Glucose Lvl (test code = Glucose Lvl) 125 70-99 [facility]2017-12-26 20:55:00 Test Item Value Reference Range Interpretation Comments BUN (test code = BUN) 7 - [facility]2017-12-26 20:55:00 Test Item Value Reference Range Interpretation Comments Globulin (test code = Globulin) 5.0 2.7-4.2 [facility]2017-12-26 20:55:00 Test Item Value Reference Range Interpretation Comments A/G Ratio (test code = A/G Ratio) 0.5 0.7-1.6 [facility]2017-12-26 20:55:00 Test Item Value Reference Range Interpretation Comments AGAP (test code = AGAP) 14.8 10.0-20.0 [facility]2017-12-26 20:55:00 Test Item Value Reference Range Interpretation Comments B/C Ratio (test code = B/C Ratio) 11 - [facility]2017-12-26 20:55:00 Test Item Value Reference Range Interpretation Comments Magnesium Lvl (test code = Magnesium 1.7 1.8-2.4 Lvl) [facility]2017-12-26 20:55:00 Test Item Value Reference Range Interpretation Comments Phosphorus (test code = Phosphorus) 2.6 2.5-4.5 [facility] ArlingtonRkmagpcYNWVYPSWSK9567-26-28 20:55:00 Test Item Value Reference Range Interpretation Comments Basophils # (test code 0.1 See_Comment [Aut omated message] The = Basophils #) system which generated this result tra nsmitted reference range : <=0.2. The reference r beth was not used to int erpret this result as normal/abnormal . [facility] ArlingtonPkuchrjNPAHEQCHFC7640-97-21 20:55:00 Test Item Value Reference Range Interpretation Comments Eosinophils # (test code 0.2 See_Comment [A utomated message] The = Eosinophils #) system whic h generated this result tra nsmitted reference range : <=0.5. The reference r beth was not used to int erpret this result as normal/abnormal . [facility]2017-12-26 10:24:00 Test Item Value Reference Range Interpretation Comments Phosphorus (test code = Phosphorus) 3.1 2.5-4.5 [facility]2017-12-26 10:24:00 Test Item Value Reference Range Interpretation Comments Magnesium Lvl (test code = Magnesium 1.8 1.8-2.4 Lvl) [facility]2017-12-26 10:24:00 Test Item Value Reference Range Interpretation Comments eGFR (test code = eGFR) 91 [facility]2017-12-26 10:24:00 Test Item Value Reference Range Interpretation Comments BUN (test code = BUN) 11 7-22 [facility]2017-12-26 10:24:00 Test Item Value Reference Range Interpretation Comments Sodium Lvl (test code = Sodium Lvl) 141 135-145 [facility]2017-12-26 10:24:00 Test Item Value Reference Range Interpretation Comments Creatinine Lvl (test code = Creatinine 0.76 0.50-1.40 Lvl) [facility]2017-12-26 10:24:00 Test Item Value Reference Range Interpretation Comments Glucose Lvl (test code = Glucose Lvl) 138 70-99 [facility]2017-12-26 10:24:00 Test Item Value Reference Range Interpretation Comments Calcium Lvl (test code = Calcium Lvl) 8.4 8.5-10.5 [place] 738037-12-26 10:24:00 Test Item Value Reference Range Interpretation Comments CO2 (test code = CO2) 25 24-32 [facility]2017-12-26 10:24:00 Test Item Value Reference Range Interpretation Comments Chloride Lvl (test code = Chloride Lvl) 107 95-109 [facility]2017-12-26 10:24:00 Test Item Value Reference Range Interpretation Comments Potassium Lvl (test code = Potassium 3.5 3.5-5.1 Lvl) [facility]2017-12-26 10:24:00 Test Item Value Reference Range Interpretation Comments AGAP (test code = AGAP) 12.5 10.0-20.0 [facility] ArlingtonEfufumzQCUZLBBQMG2804-89-08 10:24:00 Test Item Value Reference Range Interpretation Comments PROTIME (test code = PROTIME) 12.9 s 12.0-14.7 [facility] ArlingtonFojnexkMSIJQBDFEU1591-93-34 10:24:00 Test Item Value Reference Range Interpretation Comments INR (test code = INR) 0.97 0.85-1.17 [facility] ArlingtonWidiuulURNYPNLVZF0554-91-56 10:24:00 Test Item Value Reference Range Interpretation Comments Hct (test code = Hct) 33.7 36.0-48.0 [facility] ArlingtonDnepnjxORISHRZPQK2670-27-79 10:24:00 Test Item Value Reference Range Interpretation Comments Hgb (test code = Hgb) 11.2 12.0-16.0 [facility] ArlingtonGharaazSNAMXBLGQS6752-45-63 10:24:00 Test Item Value Reference Range Interpretation Comments MCHC (test code = MCHC) 33.3 32.0-36.0 [facility] ArlingtonGdraihgRTJULGWAHD5049-76-90 10:24:00 Test Item Value Reference Range Interpretation Comments MCV (test code = MCV) 83.5 80.0-98.0 [facility] ArlingtonUbpefxqEMTFRZFTYM7339-78-61 10:24:00 Test Item Value Reference Range Interpretation Comments MCH (test code = MCH) 27.8 pg 27.0-31.0 [facility] ArlingtonYotilalEEYZIZZTMU2777-60-80 10:24:00 Test Item Value Reference Range Interpretation Comments WBC X 10x3 (test code = WBC X 10x3) 8.8 3.7-10.4 [facility] ArlingtonNmjieunUMHGYLSRWO1372-77-23 10:24:00 Test Item Value Reference Range Interpretation Comments RBC X 10x6 (test code = RBC X 10x6) 4.04 4.20-5.40 [facility] ArlingtonBcnbxliNUODZWTPRW6876-36-24 10:24:00 Test Item Value Reference Range Interpretation Comments Platelet (test code = Platelet) 339 133-450 [facility] ArlingtonFdlputcUXJMGMSNLE4060-22-93 10:24:00 Test Item Value Reference Range Interpretation Comments MPV (test code = MPV) 8.8 7.4-10.4 [facility] ArlingtonHabonlfMCFOWNAKRL9631-70-44 10:24:00 Test Item Value Reference Range Interpretation Comments RDW (test code = RDW) 13.1 11.5-14.5 [facility] ArlingtonPhhknmnOWQABUOFNC8469-83-55 10:24:00 Test Item Value Reference Range Interpretation Comments Eosinophils # (test code 0.4 See_Comment [A utomated message] The = Eosinophils #) system whic h generated this result tra nsmitted reference range : <=0.5. The reference r beth was not used to int erpret this result as normal/abnormal . [facility] ArlingtonPuracmcHQHCGQKQJM4042-10-44 10:24:00 Test Item Value Reference Range Interpretation Comments Basophils # (test code 0.1 See_Comment [Aut omated message] The = Basophils #) system which generated this result tra nsmitted reference range : <=0.2. The reference r beth was not used to int erpret this result as normal/abnormal . [facility] ArlingtonZerlvdpUCEZQNOKAS4307-42-76 10:24:00 Test Item Value Reference Range Interpretation Comments Segs (test code = Segs) 61.8 45.0-75.0 [facility] ArlingtonVzsldirDCGBCMUZVW3335-94-34 10:24:00 Test Item Value Reference Range Interpretation Comments Monocytes (test code = Monocytes) 7.0 2.0-12.0 [facility] ArlingtonVthqdlpESPXQPGFQD6208-33-00 10:24:00 Test Item Value Reference Range Interpretation Comments Lymphocytes (test code = Lymphocytes) 25.9 20.0-40.0 [facility] ArlingtonSxfdkwvZEGILORAOM3363-56-93 10:24:00 Test Item Value Reference Range Interpretation Comments Eosinophils (test code = 4.4 See_Comment [A utomated message] The Eosinophils) system which ge nerated this result tra nsmitted reference range : <=4.0. The reference r beth was not used to int erpret this result as normal/abnormal . [facility] ArlingtonDubmjadZXYDSOGQXB1354-37-04 10:24:00 Test Item Value Reference Range Interpretation Comments Basophils (test code = 0.9 See_Comment [Aut omated message] The Basophils) system which ge nerated this result tra nsmitted reference range : <=1.0. The reference r beth was not used to int erpret this result as normal/abnormal . [facility] ArlingtonWcjpemvMUSFYPODDW3405-67-94 10:24:00 Test Item Value Reference Range Interpretation Comments Monocytes # (test code 0.6 See_Comment [Aut omated message] The = Monocytes #) system which generated this result tra nsmitted reference range : <=0.8. The reference r beth was not used to int erpret this result as normal/abnormal . [facility] ArlingtonWtyqsaeFQVSBTXHEH6920-74-53 10:24:00 Test Item Value Reference Range Interpretation Comments Lymphocytes # (test code = Lymphocytes 2.3 1.0-5.5 #) [facility] ArlingtonEcvhezpJMGWELLCEX6894-59-64 10:24:00 Test Item Value Reference Range Interpretation Comments Segs-Bands # (test code = Segs-Bands #) 5.4 1.5-8.1 [facility]2017-12-24 09:26:00 Test Item Value Reference Range Interpretation Comments Phosphorus (test code = Phosphorus) 2.7 2.5-4.5 [facility]2017-12-24 09:26:00 Test Item Value Reference Range Interpretation Comments Magnesium Lvl (test code = Magnesium 1.8 1.8-2.4 Lvl) [facility]2017-12-24 09:26:00 Test Item Value Reference Range Interpretation Comments eGFR (test code = eGFR) 95 [facility]2017-12-24 09:26:00 Test Item Value Reference Range Interpretation Comments CO2 (test code = CO2) 24 24-32 [facility]2017-12-24 09:26:00 Test Item Value Reference Range Interpretation Comments Calcium Lvl (test code = Calcium Lvl) 8.5 8.5-10.5 [facility]2017-12-24 09:26:00 Test Item Value Reference Range Interpretation Comments Chloride Lvl (test code = Chloride Lvl) 105 95-109 [facility]2017-12-24 09:26:00 Test Item Value Reference Range Interpretation Comments Sodium Lvl (test code = Sodium Lvl) 139 135-145 [facility]2017-12-24 09:26:00 Test Item Value Reference Range Interpretation Comments Potassium Lvl (test code = Potassium 3.8 3.5-5.1 Lvl) [facility]2017-12-24 09:26:00 Test Item Value Reference Range Interpretation Comments Creatinine Lvl (test code = Creatinine 0.73 0.50-1.40 Lvl) [facility]2017-12-24 09:26:00 Test Item Value Reference Range Interpretation Comments BUN (test code = BUN) 15 7-22 [facility]2017-12-24 09:26:00 Test Item Value Reference Range Interpretation Comments Glucose Lvl (test code = Glucose Lvl) 162 70-99 [facility]2017-12-24 09:26:00 Test Item Value Reference Range Interpretation Comments AGAP (test code = AGAP) 13.8 10.0-20.0 [facility] ArlingtonVohszwnNWFKUWADCE7743-61-24 09:26:00 Test Item Value Reference Range Interpretation Comments Basophils # (test code 0.1 See_Comment [Aut omated message] The = Basophils #) system which generated this result tra nsmitted reference range : <=0.2. The reference r beth was not used to int erpret this result as normal/abnormal . [facility] ArlingtonYrbbulgDJIBNEIMFY4695-71-88 09:26:00 Test Item Value Reference Range Interpretation Comments Eosinophils (test code = 2.4 See_Comment [A utomated message] The Eosinophils) system which ge nerated this result tra nsmitted reference range : <=4.0. The reference r beth was not used to int erpret this result as normal/abnormal . [facility] ArlingtonPnjhhdnTCMCMMWODA9961-15-67 09:26:00 Test Item Value Reference Range Interpretation Comments Lymphocytes # (test code = Lymphocytes 2.1 1.0-5.5 #) [facility] ArlingtonUbwksyfNONFKATBPC4990-70-66 09:26:00 Test Item Value Reference Range Interpretation Comments Monocytes (test code = Monocytes) 6.2 2.0-12.0 [facility] ArlingtonLrszqyqAHHAIHYBEH2512-16-67 09:26:00 Test Item Value Reference Range Interpretation Comments Lymphocytes (test code = Lymphocytes) 19.3 20.0-40.0 [facility] ArlingtonGpswvzhRTACWFHLTY7758-92-22 09:26:00 Test Item Value Reference Range Interpretation Comments Segs-Bands # (test code = Segs-Bands #) 7.8 1.5-8.1 [facility] ArlingtonYlrtvwzDPYBRDZDGT4437-03-45 09:26:00 Test Item Value Reference Range Interpretation Comments Basophils (test code = 0.5 See_Comment [Aut omated message] The Basophils) system which ge nerated this result tra nsmitted reference range : <=1.0. The reference r beth was not used to int erpret this result as normal/abnormal . [facility] ArlingtonWgymbeyBOCRHCBYFL0992-01-12 09:26:00 Test Item Value Reference Range Interpretation Comments Segs (test code = Segs) 71.6 45.0-75.0 [facility] ArlingtonYltaqprXKAJMYDCHG4468-63-59 09:26:00 Test Item Value Reference Range Interpretation Comments Eosinophils # (test code 0.3 See_Comment [A utomated message] The = Eosinophils #) system whic h generated this result tra nsmitted reference range : <=0.5. The reference r beth was not used to int erpret this result as normal/abnormal . [facility] ArlingtonEoudmthVTDHINUSPR2182-34-89 09:26:00 Test Item Value Reference Range Interpretation Comments Monocytes # (test code 0.7 See_Comment [Aut omated message] The = Monocytes #) system which generated this result tra nsmitted reference range : <=0.8. The reference r beth was not used to int erpret this result as normal/abnormal . [facility] ArlingtonCfakqmcWZJZYZTWCW2356-31-86 09:26:00 Test Item Value Reference Range Interpretation Comments Hct (test code = Hct) 32.0 36.0-48.0 [facility] ArlingtonEqxjwprANRJSSWDEF8906-01-76 09:26:00 Test Item Value Reference Range Interpretation Comments Hgb (test code = Hgb) 11.1 12.0-16.0 [facility] ArlingtonLrzszkuSLPWQCUGMR0685-54-54 09:26:00 Test Item Value Reference Range Interpretation Comments MCV (test code = MCV) 83.4 80.0-98.0 [facility] ArlingtonAczpcfiDQRFFXSPUX1482-74-13 09:26:00 Test Item Value Reference Range Interpretation Comments RBC X 10x6 (test code = RBC X 10x6) 3.84 4.20-5.40 [facility]CLSCTBW0777-59-76 09:26:00 Test Item Value Reference Range Interpretation Comments WBC X 10x3 (test code = WBC X 10x3) 10.9 3.7-10.4 [facility] ArlingtonGpqcgnoEGZRWBDVHU8641-13-17 09:26:00 Test Item Value Reference Range Interpretation Comments Platelet (test code = Platelet) 320 133-450 [facility] ArlingtonPhtcpvlSQPAFFKWNM7716-28-36 09:26:00 Test Item Value Reference Range Interpretation Comments RDW (test code = RDW) 12.8 11.5-14.5 [facility] ArlingtonKyreozjJKBDZDTZPX7775-75-82 09:26:00 Test Item Value Reference Range Interpretation Comments MCHC (test code = MCHC) 34.6 32.0-36.0 [facility] ArlingtonOpfetgvLWPUELIJID8140-47-76 09:26:00 Test Item Value Reference Range Interpretation Comments MPV (test code = MPV) 9.1 7.4-10.4 [facility] ArlingtonRgqgpuwBJSLWQNHER2043-33-78 09:26:00 Test Item Value Reference Range Interpretation Comments MCH (test code = MCH) 28.8 pg 27.0-31.0 [facility] UROYPXPLW0668-03-57 10:02:00 Test Item Value Reference Range Interpretation Comments Hgb A1C (test code = Hgb A1C) 5.7 [facility] QQZYO1968-20-01 18:32:00 Test Item Value Reference Range Interpretation Comments Lactic Acid Lvl (test code = Lactic 0.8 0.5-2.2 Acid Lvl) [facility] PIXUL5345-96-22 17:26:00 Test Item Value Reference Range Interpretation Comments eGFR (test code = eGFR) 81 [facility] PIFKU2059-67-09 17:26:00 Test Item Value Reference Range Interpretation Comments BUN (test code = BUN) 18 7-22 [facility] GPGYL4225-92-85 17:26:00 Test Item Value Reference Range Interpretation Comments Glucose Lvl (test code = Glucose Lvl) 140 70-99 [facility] MTTTX7366-30-36 17:26:00 Test Item Value Reference Range Interpretation Comments Creatinine Lvl (test code = Creatinine 0.83 0.50-1.40 Lvl) [facility]2017-12-22 17:26:00 Test Item Value Reference Range Interpretation Comments Potassium Lvl (test code = Potassium 4.1 3.5-5.1 Lvl) [facility]2017-12-22 17:26:00 Test Item Value Reference Range Interpretation Comments Sodium Lvl (test code = Sodium Lvl) 137 135-145 [facility]2017-12-22 17:26:00 Test Item Value Reference Range Interpretation Comments Chloride Lvl (test code = Chloride Lvl) 105 95-109 [facility]2017-12-22 17:26:00 Test Item Value Reference Range Interpretation Comments CO2 (test code = CO2) 27 24-32 [facility]2017-12-22 17:26:00 Test Item Value Reference Range Interpretation Comments Calcium Lvl (test code = Calcium Lvl) 9.3 8.5-10.5 [facility]2017-12-22 17:26:00 Test Item Value Reference Range Interpretation Comments AGAP (test code = AGAP) 9.1 10.0-20.0 [facility] ArlingtonZrjneyqOZOMOUWKVN5094-96-21 17:26:00 Test Item Value Reference Range Interpretation Comments MCHC (test code = MCHC) 33.4 32.0-36.0 [facility] ArlingtonKjixxgbRPGSCYWMKN4116-69-53 17:26:00 Test Item Value Reference Range Interpretation Comments MCH (test code = MCH) 28.4 pg 27.0-31.0 [facility] ArlingtonJwgogxoSGESFDUSMR4931-53-94 17:26:00 Test Item Value Reference Range Interpretation Comments RDW (test code = RDW) 13.6 11.5-14.5 [facility] ArlingtonRkanmcmCIJDCOSGNL6864-10-83 17:26:00 Test Item Value Reference Range Interpretation Comments MPV (test code = MPV) 8.0 7.4-10.4 [facility] ArlingtonWvzkckhRVUWRSICKP1471-95-51 17:26:00 Test Item Value Reference Range Interpretation Comments Platelet (test code = Platelet) 370 133-450 [facility] ArlingtonXtmtpmpRNYJBIXNWX3771-97-15 17:26:00 Test Item Value Reference Range Interpretation Comments MCV (test code = MCV) 85.1 80.0-98.0 [facility] ArlingtonCklepjvSIMKNSFHAR0075-71-16 17:26:00 Test Item Value Reference Range Interpretation Comments RBC X 10x6 (test code = RBC X 10x6) 4.41 4.20-5.40 [place] 402177-12-22 17:26:00 Test Item Value Reference Range Interpretation Comments WBC X 10x3 (test code = WBC X 10x3) 12.1 3.7-10.4 [place] 402177-12-22 17:26:00 Test Item Value Reference Range Interpretation Comments Hct (test code = Hct) 37.5 36.0-48.0 [place] [address]-12-22 17:26:00 Test Item Value Reference Range Interpretation Comments Hgb (test code = Hgb) 12.5 12.0-16.0 [place] [address]-12-22 17:26:00 Test Item Value Reference Range Interpretation Comments Basophils # (test code 0.1 See_Comment [Aut omated message] The = Basophils #) system which generated this result tra nsmitted reference range : <=0.2. The reference r beth was not used to int erpret this result as normal/abnormal . [facility] ArlingtonBioewkcSKPDNXBBXI1978-72-90 17:26:00 Test Item Value Reference Range Interpretation Comments Eosinophils # (test code 0.4 See_Comment [A utomated message] The = Eosinophils #) system whic h generated this result tra nsmitted reference range : <=0.5. The reference r beth was not used to int erpret this result as normal/abnormal . [facility] ArlingtonSubuqkdPIUSHTYTAP9602-51-46 17:26:00 Test Item Value Reference Range Interpretation Comments Monocytes # (test code 0.7 See_Comment [Aut omated message] The = Monocytes #) system which generated this result tra nsmitted reference range : <=0.8. The reference r beth was not used to int erpret this result as normal/abnormal . [facility] ArlingtonSbhgshhWUZIDBERUJ1875-42-09 17:26:00 Test Item Value Reference Range Interpretation Comments Lymphocytes # (test code = Lymphocytes 1.6 1.0-5.5 #) [facility] ArlingtonBdbfnsaYVWWGMGVHG3576-14-45 17:26:00 Test Item Value Reference Range Interpretation Comments Segs-Bands # (test code = Segs-Bands #) 9.4 1.5-8.1 [id number] 17:26:00 Test Item Value Reference Range Interpretation Comments Basophils (test code = 0.7 See_Comment [Aut omated message] The Basophils) system which POPAPP nerated this result tra nsmitted reference range : <=1.0. The reference r beth was not used to int erpret this result as normal/abnormal . [facility] [id number] 17:26:00 Test Item Value Reference Range Interpretation Comments Lymphocytes (test code = Lymphocytes) 13.3 20.0-40.0 [facility] A[id number] 17:26:00 Test Item Value Reference Range Interpretation Comments Eosinophils (test code = 3.0 See_Comment [A utomated message] The Eosinophils) system which POPAPP nerated this result tra nsmitted reference range : <=4.0. The reference r beth was not used to int erpret this result as normal/abnormal . [facility] [id number] 17:26:00 Test Item Value Reference Range Interpretation Comments Monocytes (test code = Monocytes) 5.5 2.0-12.0 [facility] [id number] 17:26:00 Test Item Value Reference Range Interpretation Comments Segs (test code = Segs) 77.5 45.0-75.0 [facility] Notes Date/Time Note Provider Source 2017-06-10 17:20:00-00:00 Patient Name: GUILLE DRAPER [facility] : 1965; Age: 52 years y/o Female MR: [id number] Study: Chest 1view DX dated 06/10/2017. Clinical Indication: - clear for surgery; Comparison: None Enlarged cardiac silhouette. Mediastinal structu res are unremarkable. No focal infiltrates within the lungs, no edema and no pneumothorax. Bones and soft tissues are unremarkable. SL: JUAN MIGUEL 2017-06-06 22:00:00-00:00 Exam: Left Ext Lower Arterial Doppler unilat [facility] Clinical Indication: - possible PVD. Comparison: None. TECHNIQUE: Sonographic evalu ation of left lower extremity arteries was performed with grayscale and color Doppler imaging with standard technique. FINDINGS: SEED CLEANER OPERATOR: Triphasic waveforms. Normal velocities. SFA: Triphasic waveforms. Normal velocities. POP: Triphasic waveforms. Normal velocities. ANIMAL NUTRITION CONSULTANT: Biphasic waveforms with spectral broadening. Mild to moderately decreased peak systolic velocities of 54.9 cm/s. RILEY: Biphasic waveforms with spectral broadening. Moderately decreased peak systolic velocities of 42.6 cm/s. PERONEAL: Biphasic waveforms with spectral broadening. Moderately decreased peak systolic velocities of 51.4 cm/s. DP: Biphasic waveforms with spectral broadening. Moderate to severely decreased peak systolic velocities of 26.9 cm/s. CTA, MRA or conventional angiography may be performed for complete assessment. IMPRESSION: 1. 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 SL: [id number] 2017-06-06 21:10:00-00:00 INDICATION: Left great toe p ain for months. History of diabetes. [facility] COMPARISON: Radiograph on 06/06/2017 TECHNIQUE: Multiplanar, multisequence noncontras t imaging of the left foot. IV contrast: None. FINDINGS: Bones: Complete marrow repla cement noted on T1 sequences at the base of the first distal phalanx and patchy areas of intermediate to low signal intensity foci on T1 sequences in the first proximal phala nx. STIR sequences demonstra te diffuse edema through the first digit phalanges. Remaining osseous structures demonstrate normal marrow signal on T1 and fluid sensitive sequences. Soft tissues: Moderate amoun t of subcutaneous edema throughout the plantar surface of the first digit. No organized/drainable fluid collection. Muscles: Mild diffuse muscle edema. No fluid col lection or atrophy. Tendons: No focal tendon signal abnormality, or evidence for tenosynovitis. IMPRESSION: 1. Osteomyelitis of the first proximal and dista l phalanges. 2. Distal first digit cellulitis without abscess . 3. Muscle changes which can be seen with diabetic neuropathy or denervation changes. SL: [id number] 2017-06-06 10:47:42-00:00 Exam: Left Foot series DX [facility] Clinical Indication: - PT wi th pain/swellign/open sores on first digit, HX of diabetic. Comparison: None. FINDINGS: The 3 views of the left foot show great toe soft tissue swelling with osteopenia or erosive change to the first proximal and distal phalanx consistent with osteomyelitis. No soft tissue gas is appreciat ed. Remaining osseous struct ures are intact. The joints are preserved. Diffuse atherosclerotic vascular calcifications are present. If there is further concern, recommend follow-up radiographs or bone scan for complete assessment. IMPRESSION: 1. Findings consistent with osteomyelitis of the left great toe with surrounding soft tissue swelling. SL: [id number]
[2022-12-17 19:49] LABS: Absolute Lymphocytes (CBC) 1.4 K/uL (0.7-4.9); Hematocrit 38.2 % (36.0-45.0); Lymphocytes % 22.5 % (15.3-44.8); MCV 88.6 fL (80-100); MPV 8.6 fL (7.6-11.3); RBC Red Blood Cell Count 4.32 M/uL (3.86-4.86)
[2022-12-17 19:57] LABS: Protime INR 0.95
[2022-12-17 20:13] LABS: ALT/SGPT 39 U/L (13-56); AST/SGOT 29 U/L (15-37); Albumin 3.9 g/dL (3.4-5.0); Alkaline Phosphatase 68 U/L (45-117); BUN Blood Urea Nitrogen 48 mg/dL (7-18); Bicarbonate 27 mEq/L (21-32); Bilirubin Direct 0.1 mg/dL (0-0.2); Bilirubin Indirect, Calculated 0.3 mg/dL (0.2-0.8); Bilirubin Total 0.4 mg/dL (0.2-1.0); Glomerular Filtration Rate 33 ml/min (=/>90); Glucose Level 248 mg/dL (74-106); Potassium 4.3 mEq/L (3.5-5.1); Protein, Total 7.9 g/dL (6.4-8.2); Sodium Level 139 mEq/L (136-145)
--- NOTE | 2022-12-18 07:34 | ER ---
Nurse's Notes [facility] Name: Estefany Christensen Age: 57 yrs Sex: Female : 1965 Arrival Date: 12/17/2022 Time: 18:38 Bed 17 Private MD: Diagnosis: Major depression recurrent, with suicidal ideation and suicidal intent Presentation: 12/17 18:41 Chief complaint: Patient states: Not feeling well for more than 2 weeks. Family nj1 concerned because patient is not eating, drinking or sleeping at night. 18:46 Coronavirus screen: Vaccine status: Patient reports being unvaccinated. Ebola Screen: nj1 Patient denies travel to an Ebola-affected area in the 21 days before illness onset. Initial Sepsis Screen: Does the patient meet any 2 criteria? HR > 90 bpm. No. Patient's initial sepsis screen is negative. Does the patient have a suspected source of infection? No. Patient's initial sepsis screen is negative. Onset of symptoms was December 03, 2022. 18:46 Method Of Arrival: Ambulatory [facility] 18:46 Acuity: ZEYNEP 2 [facility] 19:00 Risk Assessment: Do you want to hurt yourself or someone else? Patient reports nj1 desire/thoughts of hurting themselves or someone else. Provider notified. Triage Assessment: 18:50 General: Appears distressed, Behavior is appropriate for age, uncooperative. Pain: bp Denies pain. EENT: Reports DECREASED VISION POST SURGERY. Neuro: Level of Consciousness is awake, alert, Oriented to person, place, time, situation. Cardiovascular: Rhythm is sinus tachycardia. Respiratory: No deficits noted. GI: Parent/caregiver reports the patient having anorexia. : No signs and/or symptoms were reported regarding the genitourinary system. Derm: No deficits noted. Musculoskeletal: No deficits noted. Historical: - Allergies: 18:49 No Known Allergies; nj1 - PMHx: 18:49 Diabetes mellitus; Hypertensive disorder; Depressive disorder; nj1 - PSHx: 18:49 Eye surgery; nj1 - Immunization history:: Client reports having NOT received the Covid vaccine. - Social history:: Smoking status: Patient denies any tobacco usage or history of. - Family history:: not pertinent. Screenin:50 [facility] ED Fall Risk Assessment (Adult) History of falling in the last 3 months, bp including since admission No falls in past 3 months (0 pts). Abuse screen: Denies threats or abuse. Denies injuries from another. Nutritional screening: No deficits noted. Tuberculosis screening: No symptoms or risk factors identified. Assessment: 19:00 Reassessment: Pt walked back to ER room 17 with triage nurse. jl7 20:25 Reassessment: Cultural link used for psychiatric assessment, John [id number]. Pt refused vc1 to answer half of the questions stating that "Ya'll sure do ask a lot of questions." Pt did state she feels, weak, has a headache, and experiencing lots of anxiety. Pt whispered where the water pump operator couldn't understand but another occitan speaking nurse heard her say "If I were to tell you what I what do you wouldn't let me go". Pt also stated that she can't see so that is a lot of the reason she feels the way she does. 12/18 00:00 Reassessment: No changes from previously documented assessment. Patient and/or family vc1 updated on plan of care and expected duration. Pain level reassessed. Family still present at bedside. 02:31 Reassessment: Pt asleep in bed, no complaints at this time. vc1 05:36 Reassessment: No changes from previously documented assessment. Patient and/or family vc1 updated on plan of care and expected duration. Pain level reassessed. Family still at bedside. 06:37 Reassessment: [facility] at bedside for evaluation. vc1 07:00 Reassessment: [facility] at bedside at shift change. db 07:00 Reassessment: Patient appears in no apparent distress at this time. Patient and/or db family updated on plan of care and expected duration. Pain level reassessed. Patient is alert, oriented x 3, equal unlabored respirations, skin warm/dry/pink. General: Appears in no apparent distress. comfortable, Behavior is calm, cooperative. Neuro: Level of Consciousness is awake, alert, obeys commands, Oriented to person, place, time, situation. Respiratory: Airway is patent Respiratory effort is even, unlabored, Respiratory pattern is regular, symmetrical. 07:47 Reassessment: Patient appears in no apparent distress at this time. [facility] is at db patient bedside speaking with patient and family at this time. 08:03 Reassessment: [facility] done speaking with patient. Now speaking with dr. Salazar. db 08:42 Reassessment: Report given to KENDALL Jaramillo at [facility]. db 09:30 Reassessment: Patient appears in no apparent distress at this time. No changes from db previously documented assessment. Patient and/or family updated on plan of care and expected duration. Pain level reassessed. Patient is alert, oriented x 3, equal unlabored respirations, skin warm/dry/pink. 10:30 Reassessment: Patient appears in no apparent distress at this time. No changes from db previously documented assessment. Patient and/or family updated on plan of care and expected duration. Pain level reassessed. Patient is alert, oriented x 3, equal unlabored respirations, skin warm/dry/pink. 11:30 Reassessment: Patient appears in no apparent distress at this time. No changes from db previously documented assessment. Patient and/or family updated on plan of care and expected duration. Pain level reassessed. Patient is alert, oriented x 3, equal unlabored respirations, skin warm/dry/pink. 12:33 Reassessment: patient ambulatory to restroom with help from sister. db 12:59 Reassessment: patient food tray at bedside. db 15:13 Reassessment: Patient appears in no apparent distress at this time. No changes from db previously documented assessment. Patient and/or family updated on plan of care and expected duration. Pain level reassessed. Patient is alert, oriented x 3, equal unlabored respirations, skin warm/dry/pink. 15:37 Reassessment: Mental Health officer at patient bedside for transport to facility. db 15:50 Reassessment: patient transported via wheel chair with [facility]. db Psych: 12/17 20:20 [place] Suicide Severity Screening: In the past month, have you wished you were vc1 or wished you could go to sleep and not wake up? Patient responds "yes." Based off the client's responses additional C-SSRS screening is required. "In the past month, have you actually had any thoughts of killing yourself?" Patient responds "yes." Based off the client's response additional [place] suicide severity screening questions to be further documented on paper forms. "In your lifetime, have you ever done anything, started to do anything, or prepared to do anything to end your life?" Pt refused to answer. Subjective: Patient's mood is sad, Delusions are refused to answer, stated, "ya'll sure do ask a lot of questions". Objective: Patient is Will cooperate on certain things Speech is soft, Affect is flat. Interventions: Removed personal items and placed in bag. Patient placed in hospital gown. Searched person for dangerous items. Urine collected and sent for urine drug test. Belonging list filled out. family at bedside. Safety Checks: Personal items have been removed. Door is open. Visitors are present. Pt denies substance abuse. Commitment: Patient will be an involuntary commitment. Pt will become involuntary if she tries to leave facility. 12/18 07:00 [place] Suicide Severity Screening: In the past month, have you wished you were db or wished you could go to sleep and not wake up? Patient responds "yes." Based off the client's responses additional C-SSRS screening is required. "In the past month, have you actually had any thoughts of killing yourself?" Patient responds "yes." Based off the client's response additional [place] suicide severity screening questions to be further documented on paper forms. "In your lifetime, have you ever done anything, started to do anything, or prepared to do anything to end your life?" patient refuses to answer. Subjective: Patient's mood is sad, Delusions are denied. Objective: Patient is cooperative, Speech is normal, Affect is flat. Interventions: Removed personal items and placed in bag. Patient placed in hospital gown. Searched person for dangerous items. Belonging list filled out. Patient reassessed during use of restraints. Patient is physically safe. SI precautions continued. Patient remains safe. Safety Checks: Personal items have been removed. Door is open. Visitors are present. Pt denies substance abuse. Consultation: [facility] at bedside speaking with patient. 08:04 [place] Suicide Severity Screening: "In your lifetime, have you ever done anything, db started to do anything, or prepared to do anything to end your life?" Patient responds "yes." Patient reports suicidal intent within 3 past months. patient tried to hang self in the past but would not say when. Vital Signs: 12/17 18:46 BP 118 / 74; Pulse 105; Resp 18; Temp 98.5; Pulse Ox 99% ; Weight 72.57 kg; Height 5 nj1 ft. 5 in. ; 19:00 BP 120 / 83; Pulse 111; Resp 18; Pulse Ox 100% ; vc1 12/18 08:00 BP 157 / 94; Pulse 95; Resp 15; Temp 97.9(O); Pulse Ox 99% on R/A; db 15:00 BP 123 / 63; Pulse 99; Resp 16; Temp 97.9(O); Pulse Ox 100% on R/A; db 12/17 18:46 Body Mass Index 26.62 (72.57 kg, 165.1 cm) nj1 ED Course: 12/17 18:39 Patient arrived in ED. rg4 18:42 Peyman Spaulding MD is Attending Physician. rt 18:46 Venu Rodriguez, RN is Primary Nurse. bp 18:49 Triage completed. nj1 18:50 Arm band placed on left wrist. nj1 18:50 Patient has correct armband on for positive identification. Bed in low position. Call bp light in reach. Side rails up X2. Adult w/ patient. 18:56 Venu Rodriguez, RN is Primary Nurse. bp 19:03 Radha Prado FNP-C is PHCP. snw 20:32 Inserted saline lock: 20 gauge in left antecubital area, using aseptic technique. Blood ah1 collected. 20:33 CBC with Diff Sent. ah1 20:33 ETOH Level Sent. ah1 20:33 Salicylate Sent. ah1 12/18 04:29 Attending Physician role handed off by Peyman Spaulding MD sp4 04:29 Robert Skinner MD is Attending Physician. sp4 06:40 [facility] from [facility] here to screen patient. rv1 06:44 faxed patient chart to [facility]. rv1 08:04 Attending Physician role handed off by Robert Skinner MD ms3 08:04 Star Salazar DO is Attending Physician. ms3 08:12 Called Titus from the [facility]/ She will call intake and make sure they eb received patient clincals. 08:41 connected Ella from the [facility] with Kadi for patient transfer eb consultation. 08:46 No provider procedures requiring assistance completed. db 08:52 paged the psychiatrist flooring salesperson for [facility] for Dr. Salazar. eb 08:55 Connected the psychiatrist flooring salesperson for [facility] with Dr. Salazar for patient transfer consultation. 11:38 administrative approval given Lata Vega/ patient has been accepted to [facility]. 13:[address] [facility] Sherriff's office/ dispatch will page out the [facility] deputy for transport/ She says they are currently on a transport but she will relay the message. 15:37 IV discontinued, intact, bleeding controlled, No redness/swelling at site. db Administered Medications: No medications were administered Medication: 12/17 18:50 VIS not applicable for this client. bp Point of Care Testing: Blood Glucose: 12/18 08:50 Blood Glucose: 133 mg/dL; db Ranges: Outcome: 07:34 ER care complete, transfer ordered by sp4 15:37 Transferred to other acute care facility: . Note: Transferred to receiving [facility] db facility 15:37 Condition: stable 15:37 Instructed on the need for transfer. 15:54 Patient left the ED. ko1 Signatures: Radha Prado, CLINICAL DOCUMENTATION NURSE-C CLINICAL DOCUMENTATION NURSE-CsnJennifer Cornelius rg4 Lg Rowland RN RN jl7 Venu Rodriguez RN RN bp Theresa Qureshi eb Star Salazar DO DO ms3 Pat Joseph RN RN vc1 Michelle Peng, RN RN ko1 Kadi Silva, RN RN Peyman Carpio MD MD rt Villegas, Rebecca rv1 Robert Skinner MD MD sp4 Tere Sevilla RN RN nj1 [facility]ron[facility] Corrections: (The following items were deleted from the chart) 12/17 19:16 18:50 General: SEE TRIAGE NOTE. bp jlMark 19:18 19:00 Reassessment: Pt walked by to ER room 17 with triage nurse gustavo chen 19:21 18:46 Risk Assessment: Do you want to hurt yourself or someone else? Patient reports nj1 desire/thoughts of hurting themselves or someone else. Provider notified. nj1 12/18 08:44 08:04 [place] Suicide Severity Screening: "In your lifetime, have you ever done db anything, started to do anything, or prepared to do anything to end your life?" Patient responds "yes." patient tried to hang self in the past but would not say when db
--- NOTE | 2022-12-18 07:34 | EDPHYS ---
Physician Documentation [facility] Name: Estefany Christensen Age: 57 yrs Sex: Female : 1965 Arrival Date: 12/17/2022 Time: 18:38 Bed 17 Private MD: ED Physician Star Salazar HPI: 12/17 20:37 This 57 yrs old Female presents to ER via Ambulatory with complaints of rt Altered Mental Status. 20:37 Patient presents to the ED with malaise, poor oral intake for the past 2 weeks. The rt patient did affirm to the triage nurse that she was having thoughts of wanting to hurt herself. Patient states that she does not wish to be here, general uncooperative, unable to obtain further history due to the patient's uncooperative state.. 12/18 07:31 Patient care was assumed from Dr. Spaulding. Patient presents with malaise, poor oral sp4 intake for the past 2 weeks, depression, suicidal ideation. Patient is Korean-speaking only.. Historical: - Allergies: 12/17 18:49 No Known Allergies; nj1 - PMHx: 18:49 Diabetes mellitus; Hypertensive disorder; Depressive disorder; nj1 - PSHx: 18:49 Eye surgery; nj1 - Immunization history:: Client reports having NOT received the Covid vaccine. - Social history:: Smoking status: Patient denies any tobacco usage or history of. - Family history:: not pertinent. ROS: 20:37 Unable to obtain ROS due to patient being uncooperative. rt 12/18 07:34 Constitutional: Negative for fever, chills, and weight loss, positive generalized sp4 weakness and depression All other systems are negative. Exam: 12/17 20:37 Constitutional: This is a well developed, well nourished patient who is awake, alert, rt and in no acute distress. Head/Face: Normocephalic, atraumatic. Chest/axilla: Normal chest wall appearance and motion. Nontender with no deformity. No lesions are appreciated. Cardiovascular: Regular rate and rhythm with a normal S1 and S2. No gallops, murmurs, or rubs. Normal PMI, no JVD. No pulse deficits. Respiratory: Lungs have equal breath sounds bilaterally, clear to auscultation and percussion. No rales, rhonchi or wheezes noted. No increased work of breathing, no retractions or nasal flaring. Abdomen/GI: Soft, non-tender, with normal bowel sounds. No distension or tympany. No guarding or rebound. No evidence of tenderness throughout. Skin: Warm, dry with normal turgor. Normal color with no rashes, no lesions, and no evidence of cellulitis. MS/ Extremity: Pulses equal, no cyanosis. Neurovascular intact. Full, normal range of motion. Neuro: Awake and alert, GCS 15, oriented to person, place, time, and situation. Cranial nerves II-XII grossly intact. Motor strength 5/5 in all extremities. Sensory grossly intact. Cerebellar exam normal. Normal gait. Psych: Mood depressed, affect congruent. 12/18 04:37 ECG was reviewed by the Attending Physician. EKG time 0011, normal sinus rhythm, left sp4 axis deviation, otherwise normal EKG. No ectopy Vital Signs: 12/17 18:46 BP 118 / 74; Pulse 105; Resp 18; Temp 98.5; Pulse Ox 99% ; Weight 72.57 kg; Height 5 nj1 ft. 5 in. ; 19:00 BP 120 / 83; Pulse 111; Resp 18; Pulse Ox 100% ; vc1 12/18 08:00 BP 157 / 94; Pulse 95; Resp 15; Temp 97.9(O); Pulse Ox 99% on R/A; db 15:00 BP 123 / 63; Pulse 99; Resp 16; Temp 97.9(O); Pulse Ox 100% on R/A; db 12/17 18:46 Body Mass Index 26.62 (72.57 kg, 165.1 cm) nj1 MDM: 12/17 18:50 Patient medically screened. rt 12/18 04:37 Data reviewed: vital signs, nurses notes. sp4 07:31 Differential Diagnosis: electrolyte abnormality, alcohol intoxication, hypoglycemia, sp4 volume depletion. Consideration of Admission/Observation Escalation of care including admission/observation considered. Transition of care: After a detail discussion of the patient's case, care is transferred to Star Salazar DO. ED course: Patient care was transferred to Dr. Salazar, patient was assessed by [facility] psychiatric counselor service and it was advised for patient to be sent for inpatient stabilization.. This time will pursue psychiatric inpatient stabilization. . 09:00 ED course: Discussed case with [facility] resident. He is going to check Cr admission ms3 guidelines with his upper level and will call back. 10:58 Management of patient was discussed with the following: Traffic Signal Supervisor Maintenance: Resident at [facility]. Independent interpretation of the following test(s) in the Emergency Department EKG: See my EKG interpretation above. 11:01 Counseling: I had a detailed discussion with the patient and/or guardian regarding: the ms3 historical points, exam findings, and any diagnostic results supporting the discharge/admit diagnosis, lab results, the need to transfer to another facility. 12/17 18:59 Order name: Acetaminophen; Complete Time: 21:22 rt 12/17 18:59 Order name: Basic Metabolic Panel; Complete Time: 21:22 rt 12/17 18:59 Order name: CBC with Diff; Complete Time: 21:23 rt 12/17 18:59 Order name: ETOH Level; Complete Time: 04:29 rt 12/17 18:59 Order name: Hepatic Function; Complete Time: 21:23 rt 12/17 18:59 Order name: PT-INR; Complete Time: 21:23 rt 12/17 18:59 Order name: Ptt, Activated; Complete Time: 21:23 rt 12/17 18:59 Order name: Salicylate; Complete Time: 21:23 rt 12/17 18:59 Order name: Urinalysis w/ reflexes; Complete Time: 10:27 rt 12/17 18:59 Order name: Urine Drug Screen; Complete Time: 08:52 rt 12/17 19:00 Order name: Glucose, Ancillary Testing; Complete Time: 19:03 EDMS 12/18 09:01 Order name: Urine Culture EDMS 12/18 09:04 Order name: Glucose, Ancillary Testing; Complete Time: 10:27 EDMS 12/17 18:59 Order name: EKG; Complete Time: 19:00 rt 12/18 07:11 Order name: Diet Finger Food; Complete Time: 07:11 db 12/17 18:59 Order name: EKG - Nurse/Tech; Complete Time: 00:27 rt 12/17 18:59 Order name: IV Saline Lock; Complete Time: 20:33 rt 12/17 18:59 Order name: Labs collected and sent; Complete Time: 20:33 rt 12/17 18:59 Order name: Suicide Precautions; Complete Time: 00:27 rt 12/17 18:59 Order name: Suicide Screening ([place]); Complete Time: 00:27 rt 12/18 04:29 Order name: PO challenge; Complete Time: 04:40 sp4 EC:37 Rate is 91 beats/min. Rhythm is regular, Normal Sinus Rhythm. Left axis deviation sp4 noted. AR interval is normal. QRS interval is normal. QT interval is normal. T waves are Normal. No ST changes noted. Clinical impression: No evidence of ischemia. Interpreted by me. Administered Medications: No medications were administered Point of Care Testing: Blood Glucose: 08:50 Blood Glucose: 133 mg/dL; db Ranges: Critical Glucose Levels:Adult <50 mg/dl or >400 mg/dl <40 mg/dl or >180 mg/dl Disposition Summary: 12/18/22 07:34 Transfer Ordered Transfer Location: [facility] sp4 Reason: Higher level of care sp4 Condition: Stable sp4 Problem: new sp4 Symptoms: have improved sp4 Accepting Physician: Attending psychiatrist(12/18/22 15:54) ko1 Diagnosis - Major depression recurrent, with suicidal ideation and suicidal intent sp4 Forms: - Medication Reconciliation Form sp4 - SBAR form sp4 Signatures: Dispatcher [employer] EDMS Radha Prado, REAL ESTATE SALES SUPERVISOR-C REAL ESTATE SALES SUPERVISOR-Csnw Star Salazar DO DO ms3 Michelle Peng, KENDALL RN ko1 Peyman Spaulding MD MD rt Robert Skinner MD MD sp4 Tere Sevilla RN RN nj1 Corrections: (The following items were deleted from the chart) 15:54 07:34 Attending psychiatrist sp4 ko1
[2022-12-18 08:39] LABS: Barbiturates NEGATIVE (NEGATIVE); Benzodiazepines POSITIVE (NEGATIVE); Cocaine NEGATIVE (NEGATIVE); METHAMPHETAM NEGATIVE (NEGATIVE); Methadone NEGATIVE (NEGATIVE); Opiates NEGATIVE (NEGATIVE); Phencyclidine NEGATIVE (NEGATIVE); THC Cannibis NEGATIVE (NEGATIVE)
[2022-12-18 08:58] LABS: Specific Gravity 1.024 (1.005-1.030); Transitional Epithelial <5 /HPF (None Seen); Urine Bacteria <20 /HPF (<20); Urine Bilirubin NEGATIVE (Negative); Urine Blood Negative (Negative); Urine Clarity Extremely Turbid (Clear); Urine Color Yellow (Yellow); Urine Glucose 3+ (Negative); Urine Mucus 1+ /HPF (None Seen); Urine Protein 2+ (Negative); Urine Urobilinogen Normal (Normal); Urine pH 5.5 (5.0-7.0)
--- NOTE | 2022-12-18 12:28 | EKG ---
Test Date: 2022-12-18 Test Time: 00:11:09 Communications Consultant: JORGE MEASUREMENT RESULTS: Intervals: Rate: 91 ND: 142 QRSD: 78 QT: 352 QTc: 432 [place]: P: 34 ND: 142 QRS: -39 T: 73 INTERPRETIVE STATEMENTS: Normal sinus rhythm Left axis deviation Inferior infarct, age undetermined Cannot rule out Anterior infarct, age undetermined Abnormal ECG No previous ECG available for comparison Electronically Signed On 12-18-22 12:27:38 CDT by Jordin Macias
[2022-12-18 16:44] VITALS: TEMP 97.9
[2022-12-18 16:45] VITALS: BP 123/63; O2SAT 100
== END 2022-12-18 15:54 ==
LOC: ER 18:38
DX: F33.9 Major depressive disorder, recurrent, unspecified (principal)
CPT/HCPCS: 36415; 80048; 80076; 80143; 80179; 80307; 81001; 82077; 82947; 85025; 85610; 85730; 87086; 87088; 93005; 99285